=== PATIENT | male | born 1955 | race Caucasian/White ===

== ENCOUNTER → 2016-05-08 | Outpatient (CLI) | payer OTHER ==
[~2016-05-08] MED LIST: LEVO100T81 PO; SIMV-13 PO
[2016-05-08 13:25] LABS: Basophils # (auto) 0 uL; Basophils % (auto) 0.4 % (0.0-2.0); Eosinophils # (auto) 0.1 uL; Eosinophils % (auto) 1.1 % (0.0-7.0); Hematocrit 44.8 % (41.0-53.0); Hemoglobin 14.9 g/dL (13.5-17.5); Lymphocytes # (auto) 2.1 uL; Lymphocytes % (auto) 18.9 % (10.0-50.0); Mean Corpuscular Hemoglobin 27.7 pg (28.0-32.0); Mean Corpuscular Hgb Conc. 33.2 g/dL (32.0-36.0); Mean Corpuscular Volume 83.4 fL (80.0-100.0); Mean Platelet Volume 8.2 fL (7.4-10.4); Monocytes # (auto) 0.6 uL; Monocytes % (auto) 5.6 % (0.0-12.0); Neutrophils # (auto) 8.1 uL; Platelet Count (auto) 283 10^3/uL (140-450); Red Cell Distribution Width 13.8 % (11.6-16.0); White Blood Cell 10.9 10^3/uL (4.4-10.8)
[2016-05-08 13:38] LABS: Albumin 3.8 g/dL (3.4-5.0); Bilirubin, Total 0.9 mg/dL (0.2-1.0); Calcium 9.9 mg/dL (8.5-10.1); Total Protein 8.5 g/dL (6.4-8.2)
[2016-05-08 13:42] LABS: Urine Bilirubin Negative (Negative); Urine Color Yellow (Yellow); Urine Glucose Normal (Normal); Urine Ketone Negative (Negative); Urine Mucus FEW (None Seen); Urine Nitrite Negative (Negative); Urine RBC 32 /hpf (0 - 3); Urine Urobilinogen Normal (Negative); Urine pH 5.5 (5.0-8.0)
[2016-05-08 13:51] LABS: Urine Blood 2+ /uL (Negative)
== END | disposition home or self-care (01) ==
LOC: LAB 12:31
PROVIDERS: ATTEND Family Medicine
DX: E11.9 Type 2 diabetes mellitus without complications (principal); E03.9 Hypothyroidism, unspecified; Z00.00 Encounter for general adult medical examination without abnormal findings
CPT/HCPCS: 36415; 80053; 80061; 81001; 82043; 82270; 82607; 83036; 84443; 85025

== ENCOUNTER → 2016-12-16 | Outpatient (CLI) | payer OTHER ==
[2016-12-16 10:31] LABS: Basophils # (auto) 0.1 uL; Basophils % (auto) 0.7 % (0.0-2.0); Eosinophils # (auto) 0.1 uL; Eosinophils % (auto) 1.2 % (0.0-7.0); Hematocrit 43.6 % (41.0-53.0); Hemoglobin 14.7 g/dL (13.5-17.5); Lymphocytes % (auto) 23.7 % (10.0-50.0); Mean Corpuscular Hemoglobin 28.6 pg (28.0-32.0); Mean Corpuscular Hgb Conc. 33.7 g/dL (32.0-36.0); Mean Corpuscular Volume 84.8 fL (80.0-100.0); Mean Platelet Volume 7.1 fL (6.9-10.8); Monocytes # (auto) 0.5 uL; Neutrophils # (auto) 5.8 uL; Neutrophils % (auto) 68.4 % (37.0-80.0); Nucleated Red Blood Cells % 0.1 %; Platelet Count (auto) 201 10^3/uL (140-450); Red Cell Distribution Width 13.9 % (11.8-14.3); White Blood Cell 8.5 10^3/uL (4.4-10.8)
[2016-12-16 11:02] LABS: Albumin 3.9 g/dL (3.4-5.0); BUN/Creatinine Ratio 11.1; Bilirubin, Total 1.1 mg/dL (0.2-1.0); Potassium 3.8 mmol/L (3.5-5.1); Total Protein 8.2 g/dL (6.4-8.2)
[2016-12-16 15:33] LABS: Urine Bilirubin Negative (Negative); Urine Blood Negative /uL (Negative); Urine Color Yellow (Yellow); Urine Glucose Normal (Normal); Urine Hyaline Cast FEW /lpf (0 - 2); Urine Ketone Negative (Negative); Urine Mucus FEW (None Seen); Urine Nitrite Negative (Negative); Urine RBC <1 /hpf (0 - 3); Urine Squamous Epithelial Cell FEW /hpf (<5); Urine Urobilinogen Normal (Negative)
== END | disposition home or self-care (01) ==
LOC: LAB 10:09
PROVIDERS: ATTEND Family Medicine
DX: I10 Essential (primary) hypertension (principal); E11.22 Type 2 diabetes mellitus with diabetic chronic kidney disease; E03.9 Hypothyroidism, unspecified
CPT/HCPCS: 36415; 80053; 80061; 81001; 82607; 83036; 84153; 84443; 85025

== ENCOUNTER → 2018-01-06 | Outpatient (CLI) | payer OTHER ==
[2018-01-06 14:03] LABS: Basophils # (auto) 0 uL; Basophils % (auto) 0.3 % (0.0-2.0); Eosinophils # (auto) 0.2 uL; Hematocrit 43.7 % (41.0-53.0); Hemoglobin 14.5 g/dL (13.5-17.5); Lymphocytes # (auto) 2.3 uL; Lymphocytes % (auto) 29.4 % (10.0-50.0); Mean Corpuscular Hemoglobin 28.1 pg (28.0-32.0); Mean Corpuscular Hgb Conc. 33.2 g/dL (32.0-36.0); Mean Corpuscular Volume 84.8 fL (80.0-100.0); Monocytes # (auto) 0.6 uL; Monocytes % (auto) 8.1 % (0.0-12.0); Neutrophils # (auto) 4.7 uL; Neutrophils % (auto) 60.2 % (37.0-80.0); Platelet Count (auto) 207 10^3/uL (140-450); Red Blood Cells 5.16 10^6/uL (4.5-5.90); Red Cell Distribution Width 14.1 % (11.8-14.3); White Blood Cell 7.8 10^3/uL (4.4-10.8)
[2018-01-06 14:05] LABS: Urine Bacteria NONE SEEN /hpf (None Seen); Urine Blood Negative /uL (Negative); Urine Mucus FEW (None Seen); Urine Specific Gravity 1.012 (1.001-1.035); Urine WBC 1 /hpf (0 - 3)
[2018-01-06 14:22] LABS: Albumin 3.9 g/dL (3.4-5.0); BUN/Creatinine Ratio 12.8; Calcium 9.7 mg/dL (8.5-10.1)
[2018-01-06 14:26] LABS: Bilirubin, Total 1.2 mg/dL (0.2-1.0); Total Protein 8.3 g/dL (6.4-8.2)
[2018-01-06 14:46] LABS: Prostate Specific Antigen 0.35 ng/mL (0.0-4.0)
== END | disposition home or self-care (01) ==
LOC: LAB 13:41
PROVIDERS: ATTEND Family Medicine
DX: E11.22 Type 2 diabetes mellitus with diabetic chronic kidney disease (principal); E11.69 Type 2 diabetes mellitus with other specified complication; N18.3 Chronic kidney disease, stage 3 (moderate); E66.09 Other obesity due to excess calories
CPT/HCPCS: 36415; 80053; 80061; 81001; 82043; 82607; 83036; 84153; 84443; 85025

== ENCOUNTER → 2018-01-14 | Outpatient (CLI) | payer OTHER | END | disposition home or self-care (01) | LOC: LAB 10:26 | PROVIDERS: ATTEND Family Medicine | DX: E11.22 Type 2 diabetes mellitus with diabetic chronic kidney disease (principal); E11.69 Type 2 diabetes mellitus with other specified complication; I12.9 Hypertensive chronic kidney disease with stage 1 through stage 4 chronic kidney disease, or unspecified chronic kidney disease; N18.3 Chronic kidney disease, stage 3 (moderate); E66.09 Other obesity due to excess calories | CPT/HCPCS: 82270 ==

== ENCOUNTER → 2019-03-04 | Outpatient (CLI) | payer OTHER ==
[2019-03-04 12:12] LABS: Urine WBC None Seen /hpf (0 - 3)
[2019-03-04 12:30] LABS: Basophils # (auto) 0.1 uL; Basophils % (auto) 0.6 % (0.0-2.0); Eosinophils # (auto) 0.1 uL; Hematocrit 43.7 % (41.0-53.0); Hemoglobin 14.7 g/dL (13.5-17.5); Lymphocytes # (auto) 1.9 uL; Lymphocytes % (auto) 21.5 % (10.0-50.0); Mean Corpuscular Hemoglobin 28.7 pg (28.0-32.0); Mean Corpuscular Hgb Conc. 33.7 g/dL (32.0-36.0); Mean Corpuscular Volume 85.2 fL (80.0-100.0); Monocytes # (auto) 0.7 uL; Monocytes % (auto) 7.6 % (0.0-12.0); Neutrophils # (auto) 6.1 uL; Neutrophils % (auto) 69.3 % (37.0-80.0); Platelet Count (auto) 204 10^3/uL (140-450); Red Blood Cells 5.13 10^6/uL (4.5-5.90); Red Cell Distribution Width 13.8 % (11.8-14.3); White Blood Cell 8.8 10^3/uL (4.4-10.8)
[2019-03-04 12:31] LABS: Urine Bacteria NONE SEEN /hpf (None Seen); Urine Blood Negative /uL (Negative); Urine Specific Gravity 1.007 (1.001-1.035)
[2019-03-04 13:05] LABS: Albumin 3.9 g/dL (3.4-5.0); Calcium 9.8 mg/dL (8.5-10.1); Potassium 4.3 mmol/L (3.5-5.1)
[2019-03-04 13:09] LABS: BUN/Creatinine Ratio 13.7; Total Protein 8.2 g/dL (6.4-8.2)
== END | disposition home or self-care (01) ==
LOC: LAB 12:07
PROVIDERS: ATTEND Family Medicine
DX: E11.9 Type 2 diabetes mellitus without complications (principal); E78.49 Other hyperlipidemia; E03.9 Hypothyroidism, unspecified; I10 Essential (primary) hypertension; E66.09 Other obesity due to excess calories
CPT/HCPCS: 36415; 80053; 80061; 81001; 82043; 82607; 83036; 84443; 85025

== ENCOUNTER → 2020-03-29 | Outpatient (CLI) | payer OTHER ==
[2020-03-29 13:10] LABS: Basophils # (auto) 0.1 10 ^3/uL (0-0.2); Basophils % (auto) 0.8 % (0.0-2.0); Eosinophils # (auto) 0.2 10 ^3/uL (0-0.8); Eosinophils % (auto) 1.8 % (0.0-7.0); Hematocrit 42.9 % (41.0-53.0); Hemoglobin 14.4 g/dL (13.5-17.5); Lymphocytes % (auto) 21.4 % (10.0-50.0); Mean Corpuscular Hgb Conc. 33.6 g/dL (32.0-36.0); Mean Corpuscular Volume 83.3 fL (80.0-100.0); Monocytes # (auto) 0.4 10 ^3/uL (0-1.3); Monocytes % (auto) 4.7 % (0.0-12.0); Neutrophils # (auto) 6.5 10 ^3/uL (1.6-8.6); Neutrophils % (auto) 71.3 % (37.0-80.0); Platelet Count (auto) 262 10^3/uL (140-450); Red Blood Cells 5.15 10^6/uL (4.5-5.90); Red Cell Distribution Width 13.8 % (11.8-14.3); White Blood Cell 9.1 10^3/uL (4.4-10.8)
[2020-03-29 13:18] LABS: Urine Bacteria NONE SEEN /hpf (None Seen); Urine Blood Negative /uL (Negative); Urine Hyaline Cast MANY /lpf (0 - 2); Urine Mucus FEW (None Seen); Urine Specific Gravity 1.018 (1.001-1.035); Urine WBC 5 /hpf (0 - 3)
[2020-03-29 13:56] LABS: Albumin 3.6 g/dL (3.4-5.0); Calcium 9.6 mg/dL (8.5-10.1); Potassium 4.7 mmol/L (3.5-5.1)
[2020-03-29 14:01] LABS: BUN/Creatinine Ratio 13.5; Bilirubin, Total 0.9 mg/dL (0.2-1.0); Prostate Specific Antigen 1.38 ng/mL (0.0-4.0); Total Protein 8.4 g/dL (6.4-8.2)
== END | disposition home or self-care (01) ==
LOC: LAB 12:51
PROVIDERS: ATTEND Family Medicine
DX: Z12.5 Encounter for screening for malignant neoplasm of prostate (principal); E11.22 Type 2 diabetes mellitus with diabetic chronic kidney disease; I12.9 Hypertensive chronic kidney disease with stage 1 through stage 4 chronic kidney disease, or unspecified chronic kidney disease; N18.30 Chronic kidney disease, stage 3 unspecified; E66.09 Other obesity due to excess calories; I26.99 Other pulmonary embolism without acute cor pulmonale
CPT/HCPCS: 36415; 80053; 80061; 81001; 82043; 82607; 83036; 84153; 84443; 85025

== ENCOUNTER → 2021-04-15 | Outpatient (CLI) | payer OTHER ==
[2021-04-15 09:40] LABS: Basophils # (auto) 0 10 ^3/uL (0-0.2); Basophils % (auto) 0.4 % (0.0-2.0); Eosinophils # (auto) 0.1 10 ^3/uL (0-0.8); Eosinophils % (auto) 1.5 % (0.0-7.0); Hematocrit 42.3 % (41.0-53.0); Hemoglobin 14.1 g/dL (13.5-17.5); Lymphocytes # (auto) 1.8 10 ^3/uL (0.4-5.4); Lymphocytes % (auto) 18.7 % (10.0-50.0); Mean Corpuscular Hemoglobin 27.8 pg (28.0-32.0); Mean Corpuscular Hgb Conc. 33.4 g/dL (32.0-36.0); Mean Corpuscular Volume 83.3 fL (80.0-100.0); Monocytes # (auto) 0.5 10 ^3/uL (0-1.3); Monocytes % (auto) 5.6 % (0.0-12.0); Neutrophils % (auto) 73.8 % (37.0-80.0); Nucleated Red Blood Cells % 0.1 %; Red Blood Cells 5.07 10^6/uL (4.5-5.90); Red Cell Distribution Width 14.4 % (11.8-14.3); White Blood Cell 9.6 10^3/uL (4.4-10.8)
[2021-04-15 10:23] LABS: Prostate Specific Antigen 0.24 ng/mL (0.0-4.0)
[2021-04-15 10:24] LABS: Potassium 4.5 mmol/L (3.5-5.1)
[2021-04-15 10:37] LABS: Albumin 3.4 g/dL (3.4-5.0); BUN/Creatinine Ratio 16.3; Calcium 9.7 mg/dL (8.5-10.1); Total Protein 7.3 g/dL (6.4-8.2)
[2021-04-16 08:59] LABS: Urine Bacteria NONE SEEN /hpf (None Seen); Urine Blood Negative /uL (Negative); Urine Specific Gravity 1.011 (1.001-1.035); Urine WBC 1 /hpf (0 - 3)
== END | disposition home or self-care (01) ==
LOC: LAB 08:50
PROVIDERS: ATTEND Family Medicine
DX: E11.42 Type 2 diabetes mellitus with diabetic polyneuropathy (principal); E66.01 Morbid (severe) obesity due to excess calories; I10 Essential (primary) hypertension; E78.49 Other hyperlipidemia
CPT/HCPCS: 36415; 80053; 80061; 81001; 82043; 82607; 83036; 84153; 84443; 85025

== ENCOUNTER → 2021-05-20 | Outpatient (CLI) | payer OTHER ==
[2021-05-20 07:46] LABS: Albumin 3.5 g/dL (3.4-5.0); Basophils # (auto) 0.2 10 ^3/uL (0-0.2); Basophils % (auto) 1.5 % (0.0-2.0); Eosinophils # (auto) 0.3 10 ^3/uL (0-0.8); Eosinophils % (auto) 2.5 % (0.0-7.0); Hemoglobin 14.5 g/dL (13.5-17.5); Lymphocytes % (auto) 18.5 % (10.0-50.0); Mean Corpuscular Hgb Conc. 33.7 g/dL (32.0-36.0); Monocytes # (auto) 0.5 10 ^3/uL (0-1.3); Neutrophils # (auto) 7.8 10 ^3/uL (1.6-8.6); Neutrophils % (auto) 72.5 % (37.0-80.0); Potassium 4.7 mmol/L (3.5-5.1); Red Blood Cells 5.18 10^6/uL (4.5-5.90); Red Cell Distribution Width 14.1 % (11.8-14.3); White Blood Cell 10.8 10^3/uL (4.4-10.8)
[2021-05-20 07:53] LABS: BUN/Creatinine Ratio 15.3; Bilirubin, Total 0.7 mg/dL (0.2-1.0); Calcium 10.3 mg/dL (8.5-10.1); Total Protein 7.7 g/dL (6.4-8.2)
== END | disposition home or self-care (01) ==
LOC: LAB 07:06
PROVIDERS: ATTEND Student in an Organized Health Care Education/Training Program
DX: I12.9 Hypertensive chronic kidney disease with stage 1 through stage 4 chronic kidney disease, or unspecified chronic kidney disease (principal); E11.22 Type 2 diabetes mellitus with diabetic chronic kidney disease; E11.319 Type 2 diabetes mellitus with unspecified diabetic retinopathy without macular edema; N18.9 Chronic kidney disease, unspecified; E66.01 Morbid (severe) obesity due to excess calories; E78.49 Other hyperlipidemia
CPT/HCPCS: 36415; 80053; 85025

== ENCOUNTER → 2021-05-28 | Outpatient (CLI) | payer OTHER | END | disposition home or self-care (01) | LOC: LAB 10:43 | PROVIDERS: ATTEND Student in an Organized Health Care Education/Training Program | DX: I12.9 Hypertensive chronic kidney disease with stage 1 through stage 4 chronic kidney disease, or unspecified chronic kidney disease (principal); E11.319 Type 2 diabetes mellitus with unspecified diabetic retinopathy without macular edema; E11.22 Type 2 diabetes mellitus with diabetic chronic kidney disease; N18.9 Chronic kidney disease, unspecified; E78.49 Other hyperlipidemia; E66.01 Morbid (severe) obesity due to excess calories | CPT/HCPCS: 82274 ==

== ENCOUNTER → 2021-08-08 | Outpatient (CLI) | payer OTHER | END | disposition home or self-care (01) | LOC: LAB 10:50 | PROVIDERS: ATTEND Student in an Organized Health Care Education/Training Program | DX: Z12.11 Encounter for screening for malignant neoplasm of colon (principal) | CPT/HCPCS: 82270 ==

== ENCOUNTER → 2021-08-19 | Outpatient (CLI) | payer OTHER ==
[2021-08-19 08:30] LABS: Cholesterol 150 mg/dL (< 200); HDL Cholesterol 51 mg/dL (40-59); LDL Cholesterol 87 mg/dL (< 100); Triglycerides 144 mg/dL (< 150)
== END | disposition home or self-care (01) ==
LOC: LAB 07:26
PROVIDERS: ATTEND Student in an Organized Health Care Education/Training Program
DX: E11.319 Type 2 diabetes mellitus with unspecified diabetic retinopathy without macular edema (principal); E78.49 Other hyperlipidemia
CPT/HCPCS: 36415; 80061; 83036

== ENCOUNTER → 2022-04-01 | Outpatient (CLI) | payer OTHER | END | disposition home or self-care (01) | LOC: XYW 08:29 | PROVIDERS: ATTEND Internal Medicine | DX: I35.0 Nonrheumatic aortic (valve) stenosis (principal) | CPT/HCPCS: 93306 ==

== ENCOUNTER → 2022-04-07 | Outpatient (CLI) | payer OTHER ==
[2022-04-07 10:23] LABS: Albumin 3.6 g/dL (3.4-5.0); Calcium 9.5 mg/dL (8.5-10.1); Potassium 4.5 mmol/L (3.5-5.1)
[2022-04-07 10:30] LABS: BUN/Creatinine Ratio 15.3; Total Protein 7.6 g/dL (6.4-8.2)
== END | disposition home or self-care (01) ==
LOC: LAB 09:42
PROVIDERS: ATTEND Internal Medicine
DX: I10 Essential (primary) hypertension (principal)
CPT/HCPCS: 36415; 80053

== ENCOUNTER → 2022-05-14 | Outpatient (CLI) | payer OTHER ==
[2022-05-14 13:06] LABS: Basophils # (auto) 0.1 10 ^3/uL (0-0.2); Eosinophils # (auto) 0.3 10 ^3/uL (0-0.8); Lymphocytes # (auto) 2.2 10 ^3/uL (0.4-5.4); Mean Corpuscular Volume 79.7 fL (80.0-100.0); Monocytes # (auto) 0.6 10 ^3/uL (0-1.3); Nucleated Red Blood Cells % 0.1 %
[2022-05-14 13:08] LABS: Basophils % (auto) 1.1 % (0.0-2.0); Eosinophils % (auto) 2.7 % (0.0-7.0); Hematocrit 40.6 % (41.0-53.0); Hemoglobin 13.4 g/dL (13.5-17.5); Lymphocytes % (auto) 21.9 % (10.0-50.0); Mean Corpuscular Hemoglobin 26.3 pg (28.0-32.0); Monocytes % (auto) 6.1 % (0.0-12.0); Neutrophils # (auto) 6.9 10 ^3/uL (1.6-8.6); Neutrophils % (auto) 68.2 % (37.0-80.0); Red Cell Distribution Width 14.8 % (11.8-14.3); White Blood Cell 10.2 10^3/uL (4.4-10.8)
[2022-05-14 14:12] LABS: Albumin 3.5 g/dL (3.4-5.0); Calcium 9.6 mg/dL (8.5-10.1); Potassium 4.9 mmol/L (3.5-5.1)
[2022-05-14 14:14] LABS: Protein, Urine 48.9 mg/dL (0.0-11.9)
[2022-05-14 14:16] LABS: BUN/Creatinine Ratio 12.3; Bilirubin, Total 0.7 mg/dL (0.2-1.0); Total Protein 7.8 g/dL (6.4-8.2)
[2022-05-14 14:25] LABS: Micro Albumin 74.4 mg/L (0-30.0)
== END | disposition home or self-care (01) ==
LOC: LAB 12:37
PROVIDERS: ATTEND Student in an Organized Health Care Education/Training Program
DX: Z12.11 Encounter for screening for malignant neoplasm of colon (principal); E11.65 Type 2 diabetes mellitus with hyperglycemia; E66.01 Morbid (severe) obesity due to excess calories
CPT/HCPCS: 36415; 80053; 80061; 82043; 82274; 82570; 83036; 84156; 85025

== ENCOUNTER → 2023-04-15 | Outpatient (CLI) | payer OTHER ==
[~2023-04-15] MED LIST changes: -SIMV-13 PO; +SIMV40TA18 PO
[2023-04-15 12:46] LABS: Basophils # (auto) 0.1 10 ^3/uL (0-0.2); Eosinophils # (auto) 0.3 10 ^3/uL (0-0.8); Hematocrit 41.6 % (41.0-53.0); Lymphocytes # (auto) 2.1 10 ^3/uL (0.4-5.4); White Blood Cell 7.7 10^3/uL (4.4-10.8)
[2023-04-15 12:48] LABS: Basophils % (auto) 1.5 % (0.0-2.0); Eosinophils % (auto) 4.2 % (0.0-7.0); Hemoglobin 13.5 g/dL (13.5-17.5); Lymphocytes % (auto) 27.6 % (10.0-50.0); Mean Corpuscular Hgb Conc. 32.4 g/dL (32.0-36.0); Mean Corpuscular Volume 83.1 fL (80.0-100.0); Monocytes # (auto) 0.6 10 ^3/uL (0-1.3); Monocytes % (auto) 7.2 % (0.0-12.0); Neutrophils # (auto) 4.6 10 ^3/uL (1.6-8.6); Neutrophils % (auto) 59.5 % (37.0-80.0); Nucleated Red Blood Cells % 0.1 %; Red Cell Distribution Width 14.6 % (11.8-14.3)
[2023-04-15 13:12] LABS: Urine Bacteria NONE SEEN /hpf (None Seen); Urine Blood 2+ /uL (Negative); Urine Clarity Clear (Clear); Urine Color Yellow (Yellow); Urine Hyaline Cast FEW /lpf (0 - 2); Urine Protein, UAD TRACE (Negative); Urine Specific Gravity 1.019 (1.001-1.035); Urine Urobilinogen Normal (Negative); Urine WBC 1 /hpf (0 - 3)
[2023-04-15 13:20] LABS: Creatinine, Urine 111.4 mg/dL (30.0-125.0)
[2023-04-15 13:22] LABS: Alanine Aminotransferase 37 U/L (7-40); Albumin 4.3 g/dL (3.2-4.8); Alkaline Phosphatase 82 U/L (46-116); Anion Gap 6 (5-15); Aspartate Aminotransferase 31 U/L (13-40); BUN/Creatinine Ratio 12.4 (10.0-20.0); Blood Urea Nitrogen 17 mg/dL (9-23); Calcium 10.1 mg/dL (8.5-10.1); Carbon Dioxide 27 mmol/L (20-30); Chloride 107 mmol/L (98-107); Glucose 178 mg/dL (74-106); LDL Cholesterol 94 mg/dL (< 100); Potassium 5.4 mmol/L (3.5-5.1); Sodium 140 mmol/L (136-145); Triglycerides 158 mg/dL (< 150)
[2023-04-15 13:23] LABS: Cholesterol 160 mg/dL (< 200); HDL Cholesterol 38 mg/dL (40-59); Total Protein 7.3 g/dL (5.7-8.2)
== END | disposition home or self-care (01) ==
LOC: LAB 12:26
PROVIDERS: ATTEND Student in an Organized Health Care Education/Training Program
DX: I12.9 Hypertensive chronic kidney disease with stage 1 through stage 4 chronic kidney disease, or unspecified chronic kidney disease (principal); E11.22 Type 2 diabetes mellitus with diabetic chronic kidney disease; N18.31 Chronic kidney disease, stage 3a; E11.65 Type 2 diabetes mellitus with hyperglycemia; R31.9 Hematuria, unspecified; E66.01 Morbid (severe) obesity due to excess calories; Z87.442 Personal history of urinary calculi
CPT/HCPCS: 36415; 80053; 80061; 81001; 82043; 82570; 83036; 85025

== ENCOUNTER → 2023-04-27 | Outpatient (CLI) | payer OTHER | END | disposition home or self-care (01) | LOC: XYW 13:08 | PROVIDERS: ATTEND Student in an Organized Health Care Education/Training Program | DX: I50.32 Chronic diastolic (congestive) heart failure (principal) | CPT/HCPCS: 93306 ==

== ENCOUNTER → 2023-05-05 | Outpatient (CLI) | payer OTHER | END | disposition home or self-care (01) | LOC: LAB 12:45 | PROVIDERS: ATTEND Student in an Organized Health Care Education/Training Program | DX: I12.9 Hypertensive chronic kidney disease with stage 1 through stage 4 chronic kidney disease, or unspecified chronic kidney disease (principal); E11.22 Type 2 diabetes mellitus with diabetic chronic kidney disease; E11.65 Type 2 diabetes mellitus with hyperglycemia; N18.30 Chronic kidney disease, stage 3 unspecified; R31.9 Hematuria, unspecified; E66.9 Obesity, unspecified; Z87.442 Personal history of urinary calculi | CPT/HCPCS: 82274 ==

== ENCOUNTER 2023-12-07 17:41 | Inpatient (IN) | payer OTHER ==
[~2023-12-07] VITALS: Ht 157.5 cm; Wt 154.9 kg
[~2023-12-07 17:41] MED LIST changes: +ASPI325T6 PO; +DIGO0.12 PO; +GLIP5TAB21 PO; +INSUINJ37 SC; +LEVO175T4 PO; +LISI-275 PO; +LISI2.5T47 PO; +METF-370 PO; +METO25TA5 PO; +ROSU40TA81 PO; -SIMV40TA18 PO; +WARF4TAB70 PO
[2023-12-07 18:20] VITALS: PULSE 124; RESP 25; O2SAT 94
[2023-12-07] MEDS: SODIUM CHLORIDE 0.9% 500 ML IV ONE (18:30)
[2023-12-07] MEDS: SODIUM CHLORIDE 0.9% 1,000 ML IV ONE (18:42)
[2023-12-07] MEDS ORDERED: SODIUM CHLORIDE 0.9% 1,000 ML IV ONE (18:45)
[2023-12-07 19:08] LABS: Basophils # (auto) 0.1 10 ^3/uL (0-0.2); Basophils % (auto) 0.4 % (0.0-2.0); Eosinophils # (auto) 0 10 ^3/uL (0-0.8); Eosinophils % (auto) 0.1 % (0.0-7.0); Hematocrit 29.5 % (41.0-53.0); Lymphocytes # (auto) 0.9 10 ^3/uL (0.4-5.4); Mean Corpuscular Hemoglobin 26.9 pg (28.0-32.0); Mean Corpuscular Hgb Conc. 33.7 g/dL (32.0-36.0); Monocytes # (auto) 1.5 10 ^3/uL (0-1.3); Monocytes % (auto) 6.7 % (0.0-12.0); Neutrophils # (auto) 19.3 10 ^3/uL (1.6-8.6); Neutrophils % (auto) 88.8 % (37.0-80.0); Platelet Count (auto) 193 10^3/uL (140-450); Red Blood Cells 3.69 10^6/uL (4.5-5.90); Red Cell Distribution Width 14.4 % (11.8-14.3); White Blood Cell 21.8 10^3/uL (4.4-10.8)
[2023-12-07 19:26] LABS: Alanine Aminotransferase 25 U/L (7-40); Albumin 3.9 g/dL (3.2-4.8); Alkaline Phosphatase 66 U/L (46-116); Anion Gap 7 (5-15); Aspartate Aminotransferase 48 U/L (13-40); BUN/Creatinine Ratio 7.6 (10.0-20.0); Bilirubin, Total 1.2 mg/dL (0.2-1.0); Blood Urea Nitrogen 32 mg/dL (9-23); Calcium 8.9 mg/dL (8.7-10.4); Carbon Dioxide 23 mmol/L (20-30); Chloride 103 mmol/L (98-107); Glucose 254 mg/dL (74-106); Potassium 3.7 mmol/L (3.5-5.1); Sodium 133 mmol/L (136-145); Total Protein 6.8 g/dL (5.7-8.2)
[2023-12-07] MEDS: levoFLOXacin 500MG 100 ML IV ONE (20:42)
[2023-12-08 02:08] LABS: Urine Bacteria None Seen /hpf (None Seen)
[2023-12-08] MEDS ORDERED: VANCOMYCIN PER PHARMACY 0 MG IV SCH (02:30)
[2023-12-08] MEDS ORDERED: DOCUSATE SOD 100 MG CAP PO PRN (02:30)
[2023-12-08] MEDS ORDERED: DEXTROSE (50%) 50ML SYRG IV PRN (02:30)
[2023-12-08 02:32] LABS: Urine Amorphous Crystal FEW /hpf (None Seen); Urine Blood 3+ /uL (Negative); Urine Clarity Ex.Turbid (Clear); Urine Color Light-Orange (Yellow); Urine Mucus FEW (None Seen); Urine Protein, UAD 2+ (Negative); Urine Specific Gravity 1.011 (1.001-1.035); Urine Urobilinogen Normal (Negative); Urine WBC 644 /hpf (0 - 3); Urine WBC Clumps PRESENT /hpf (None Seen)
[2023-12-08] MEDS ORDERED: ACETAMINOPHEN 500 MG TAB PO PRN (02:45)
[2023-12-08 03:01] LABS: Amphetamine Screen, Urine Neg (NEGATIVE); Barbiturate Scree,Urine Neg (NEGATIVE); Benzodiazephine Screen, Urine Neg (NEGATIVE); Cocaine Screen, Urine Neg (NEGATIVE)
[2023-12-08 03:02] LABS: Cannabinoid Screen, Urine Neg (NEGATIVE); Opiate Scree,Urine Neg (NEGATIVE); Phencyclidine Screen, Urine Neg (NEGATIVE)
[2023-12-08 03:35] LABS: INR 1.89 (0.9-1.15); Partial Thromboplastin Time 42.2 SEC (24.5-34.5); Prothrombin Time 19.1 sec (9.3-11.8)
[2023-12-08] MEDS: VANCOMYCIN 1GM/200ML 200 ML IV ONE (03:46)
[2023-12-08] MEDS: ACCU-CHEK COMFORT CURVE STRIP VI SCH (04:00)
[2023-12-08] MEDS: InsuLIN REG 1unit/0.01ml Soln (100units/ml) SC SCH (04:00)
[2023-12-08 04:56] VITALS: BP 103/51; PULSE 106; O2SAT 98
[2023-12-08 04:59] VITALS: BP 103/51; PULSE 106; RESP 24; TEMP 99.9; O2SAT 98
[2023-12-08 06:38] LABS: Basophils # (auto) 0.1 10 ^3/uL (0-0.2); Basophils % (auto) 0.3 % (0.0-2.0); Eosinophils # (auto) 0 10 ^3/uL (0-0.8); Hematocrit 28.6 % (41.0-53.0); Hemoglobin 9.8 g/dL (13.5-17.5); Lymphocytes # (auto) 0.8 10 ^3/uL (0.4-5.4); Lymphocytes % (auto) 3.9 % (10.0-50.0); Mean Corpuscular Hemoglobin 27.6 pg (28.0-32.0); Mean Corpuscular Hgb Conc. 34.3 g/dL (32.0-36.0); Mean Corpuscular Volume 80.3 fL (80.0-100.0); Monocytes # (auto) 1.1 10 ^3/uL (0-1.3); Monocytes % (auto) 5.5 % (0.0-12.0); Neutrophils # (auto) 18.1 10 ^3/uL (1.6-8.6); Neutrophils % (auto) 90.3 % (37.0-80.0); Platelet Count (auto) 188 10^3/uL (140-450); Red Blood Cells 3.56 10^6/uL (4.5-5.90); Red Cell Distribution Width 14.9 % (11.8-14.3)
[2023-12-08 06:47] LABS: Alanine Aminotransferase 24 U/L (7-40); Albumin 3.7 g/dL (3.2-4.8); Alkaline Phosphatase 68 U/L (46-116); Anion Gap 11 (5-15); Aspartate Aminotransferase 48 U/L (13-40); BUN/Creatinine Ratio 8.4 (10.0-20.0); Bilirubin, Total 1.1 mg/dL (0.2-1.0); Blood Urea Nitrogen 39 mg/dL (9-23); Calcium 8.7 mg/dL (8.7-10.4); Carbon Dioxide 23 mmol/L (20-30); Chloride 101 mmol/L (98-107); Glucose 260 mg/dL (74-106); Sodium 135 mmol/L (136-145); Total Protein 6.5 g/dL (5.7-8.2)
[2023-12-08] MEDS: INSULIN LANTUS (GLARGINE) 1 /0.01ml (100units/ml) SC SCH (08:02)
[2023-12-08 08:34] VITALS: PULSE 116; RESP 20; O2SAT 95
[2023-12-08 09:06] LABS: COVID19 ANTIGEN SOFIA FIA NEGATIVE (NEGATIVE)
[2023-12-08] MEDS ORDERED: CEFEPIME HCL-DEXTROSE 50 ML IV SCH (10:00)
[2023-12-08] MEDS ORDERED: ENOXAPARIN SOD 150 MG/1 ML SYRINGE SC SCH (10:00)
[2023-12-08] MEDS: CEFEPIME 1GM/ 50ML 50 ML IV SCH (10:25)
[2023-12-08] MEDS: SODIUM CHLORIDE 0.9% 1,000 ML IV SCH (13:06)
[2023-12-08] MEDS: WARFARIN SODIUM 5 MG TAB PO ONE (18:43)
[2023-12-08 19:20] VITALS: PULSE 102; RESP 16; O2SAT 90
[2023-12-08] MEDS ORDERED: TAMS0.4C39 PO (23:56)
[2023-12-09] VITALS (10 sets, daily range): BP systolic 121–141; BP diastolic 69–95; PULSE 78–117; RESP 18–25; TEMP 97.6–98.4; O2SAT 90–98
[2023-12-09] MEDS: INSULIN LANTUS (GLARGINE) 1 /0.01ml (100units/ml) SC SCH (06:45)
[2023-12-09] MEDS ORDERED: VANCOMYCIN PER PHARMACY 0 MG IV SCH (07:00)
[2023-12-09 07:51] LABS: Basophils # (auto) 0.1 10 ^3/uL (0-0.2); Basophils % (auto) 0.5 % (0.0-2.0); Eosinophils # (auto) 0.1 10 ^3/uL (0-0.8); Hemoglobin 10.6 g/dL (13.5-17.5); Red Cell Distribution Width 14.8 % (11.8-14.3)
[2023-12-09 07:54] LABS: Eosinophils % (auto) 0.4 % (0.0-7.0); Hematocrit 31.5 % (41.0-53.0); Lymphocytes % (auto) 5.3 % (10.0-50.0); Mean Corpuscular Hgb Conc. 33.7 g/dL (32.0-36.0); Mean Corpuscular Volume 80.1 fL (80.0-100.0); Monocytes % (auto) 5.2 % (0.0-12.0); Neutrophils # (auto) 16.5 10 ^3/uL (1.6-8.6); Neutrophils % (auto) 88.6 % (37.0-80.0); Platelet Count (auto) 253 10^3/uL (140-450); Red Blood Cells 3.94 10^6/uL (4.5-5.90); White Blood Cell 18.7 10^3/uL (4.4-10.8)
[2023-12-09 08:28] LABS: Chloride 105 mmol/L (98-107); Potassium 4.2 mmol/L (3.5-5.1); Sodium 138 mmol/L (136-145)
[2023-12-09 08:29] LABS: Anion Gap 13 (5-15); Calcium 9.2 mg/dL (8.7-10.4); Carbon Dioxide 20 mmol/L (20-30)
[2023-12-09 08:33] LABS: Glucose 209 mg/dL (74-106)
[2023-12-09 08:34] LABS: BUN/Creatinine Ratio 9.6 (10.0-20.0); Blood Urea Nitrogen 47 mg/dL (9-23)
[2023-12-09] MEDS: VANCOMYCIN 1GM/200ML 200 ML IV ONE ×2 (08:36→16:19)
[2023-12-09 08:53] LABS: INR 2.28 (0.9-1.15); Partial Thromboplastin Time 47.8 SEC (24.5-34.5); Prothrombin Time 22.7 sec (9.3-11.8)
[2023-12-09] MEDS: SODIUM CHLORIDE 0.9% 500 ML IV ONE (11:49)
[2023-12-09] MEDS: WARFARIN SODIUM 2 MG TAB PO ONE (17:21)
[2023-12-10] VITALS (15 sets, daily range): BP systolic 121–144; BP diastolic 68–78; PULSE 78–103; RESP 16–20; TEMP 97.7–98.6; O2SAT 92–98
[2023-12-10 00:14] LABS: Creatinine, Urine 61.36 mg/dL (30.0-125.0)
[2023-12-10 07:14] LABS: Basophils # (auto) 0.1 10 ^3/uL (0-0.2); Basophils % (auto) 0.5 % (0.0-2.0); Eosinophils # (auto) 0.2 10 ^3/uL (0-0.8); Eosinophils % (auto) 1.8 % (0.0-7.0); Hemoglobin 10.1 g/dL (13.5-17.5); Lymphocytes # (auto) 0.7 10 ^3/uL (0.4-5.4); Lymphocytes % (auto) 5.9 % (10.0-50.0); Mean Corpuscular Hemoglobin 27.2 pg (28.0-32.0); Mean Corpuscular Hgb Conc. 33.7 g/dL (32.0-36.0); Mean Corpuscular Volume 80.8 fL (80.0-100.0); Monocytes # (auto) 0.7 10 ^3/uL (0-1.3); Monocytes % (auto) 5.6 % (0.0-12.0); Neutrophils # (auto) 10.8 10 ^3/uL (1.6-8.6); Neutrophils % (auto) 86.2 % (37.0-80.0); Platelet Count (auto) 244 10^3/uL (140-450); Red Blood Cells 3.71 10^6/uL (4.5-5.90); White Blood Cell 12.5 10^3/uL (4.4-10.8)
[2023-12-10 07:26] LABS: Chloride 106 mmol/L (98-107); Potassium 4.6 mmol/L (3.5-5.1); Sodium 138 mmol/L (136-145)
[2023-12-10 07:27] LABS: Anion Gap 10 (5-15); Calcium 8.4 mg/dL (8.7-10.4); Carbon Dioxide 22 mmol/L (20-30)
[2023-12-10 07:31] LABS: INR 3.54 (0.9-1.15); Partial Thromboplastin Time 57.4 SEC (24.5-34.5); Prothrombin Time 34.2 sec (9.3-11.8)
[2023-12-10 07:32] LABS: BUN/Creatinine Ratio 12.1 (10.0-20.0); Blood Urea Nitrogen 59 mg/dL (9-23); Glucose 305 mg/dL (74-106)
[2023-12-10] MEDS: INSULIN LANTUS (GLARGINE) 1 /0.01ml (100units/ml) SC SCH (08:30)
[2023-12-10] MEDS ORDERED: DEXTROSE (50%) 50ML SYRG IV PRN (08:30)
[2023-12-10] MEDS: ACCU-CHEK COMFORT CURVE STRIP VI SCH (11:33)
[2023-12-10] MEDS: InsuLIN REG 1unit/0.01ml Soln (100units/ml) SC SCH (11:34)
[2023-12-11] VITALS (11 sets, daily range): BP systolic 105–154; BP diastolic 63–81; PULSE 67–109; RESP 16–21; TEMP 97.7–98.6; O2SAT 93–98
[2023-12-11 07:49] LABS: Basophils # (auto) 0.1 10 ^3/uL (0-0.2); Basophils % (auto) 0.7 % (0.0-2.0); Eosinophils # (auto) 0.4 10 ^3/uL (0-0.8); Eosinophils % (auto) 2.8 % (0.0-7.0); Hematocrit 31.4 % (41.0-53.0); Hemoglobin 10.4 g/dL (13.5-17.5); Lymphocytes # (auto) 0.9 10 ^3/uL (0.4-5.4); Lymphocytes % (auto) 6.6 % (10.0-50.0); Mean Corpuscular Hgb Conc. 33.3 g/dL (32.0-36.0); Mean Corpuscular Volume 81.1 fL (80.0-100.0); Monocytes # (auto) 0.9 10 ^3/uL (0-1.3); Monocytes % (auto) 6.8 % (0.0-12.0); Neutrophils # (auto) 10.8 10 ^3/uL (1.6-8.6); Neutrophils % (auto) 83.1 % (37.0-80.0); Platelet Count (auto) 293 10^3/uL (140-450); Red Blood Cells 3.87 10^6/uL (4.5-5.90); Red Cell Distribution Width 15.4 % (11.8-14.3)
[2023-12-11 08:08] LABS: INR 3.53 (0.9-1.15); Partial Thromboplastin Time 58.6 SEC (24.5-34.5); Prothrombin Time 34.1 sec (9.3-11.8)
[2023-12-11 08:10] LABS: Calcium 9.5 mg/dL (8.7-10.4); Chloride 105 mmol/L (98-107); Potassium 4.5 mmol/L (3.5-5.1); Sodium 136 mmol/L (136-145)
[2023-12-11 08:11] LABS: Anion Gap 9 (5-15); Carbon Dioxide 22 mmol/L (20-31)
[2023-12-11 08:16] LABS: BUN/Creatinine Ratio 12.3 (10.0-20.0); Blood Urea Nitrogen 54 mg/dL (9-23)
[2023-12-11 08:28] LABS: Glucose 280 mg/dL (74-106)
[2023-12-11] MEDS ORDERED: HEPARIN DRIP/D5W 100UNITS/ML 250 ML IV SCH (08:30)
[2023-12-11 14:15] LABS: INR 3.03 (0.9-1.15); Prothrombin Time 29.6 sec (9.3-11.8)
[2023-12-11] MEDS ORDERED: WARFARIN SODIUM 5 MG TAB PO ONE (17:00)
[2023-12-11] MEDS: VANCOMYCIN 1GM/200ML 200 ML IV ONE (18:21)
[2023-12-12] VITALS (10 sets, daily range): BP systolic 127–166; BP diastolic 58–76; PULSE 74–102; RESP 15–20; TEMP 97.5–98.2; O2SAT 92–98
[2023-12-12] MEDS: INSULIN LANTUS (GLARGINE) 1 /0.01ml (100units/ml) SC SCH (06:46)
[2023-12-12 06:56] LABS: Eosinophils # (auto) 0.3 10 ^3/uL (0-0.8); Monocytes # (auto) 0.8 10 ^3/uL (0-1.3); Red Cell Distribution Width 15.1 % (11.8-14.3)
[2023-12-12 06:58] LABS: Basophils # (auto) 0.1 10 ^3/uL (0-0.2); Basophils % (auto) 0.8 % (0.0-2.0); Eosinophils % (auto) 2.2 % (0.0-7.0); Hematocrit 31.1 % (41.0-53.0); Hemoglobin 10.4 g/dL (13.5-17.5); Lymphocytes % (auto) 7.4 % (10.0-50.0); Mean Corpuscular Hgb Conc. 33.3 g/dL (32.0-36.0); Mean Corpuscular Volume 80.9 fL (80.0-100.0); Monocytes % (auto) 5.7 % (0.0-12.0); Neutrophils # (auto) 11.1 10 ^3/uL (1.6-8.6); Neutrophils % (auto) 83.9 % (37.0-80.0); Platelet Count (auto) 315 10^3/uL (140-450); Red Blood Cells 3.85 10^6/uL (4.5-5.90); White Blood Cell 13.2 10^3/uL (4.4-10.8)
[2023-12-12 07:08] LABS: Anion Gap 10 (5-15); Calcium 9.5 mg/dL (8.7-10.4); Carbon Dioxide 20 mmol/L (20-31); Chloride 107 mmol/L (98-107); Potassium 4.8 mmol/L (3.5-5.1); Sodium 137 mmol/L (136-145)
[2023-12-12 07:10] LABS: INR 2.54 (0.9-1.15); Partial Thromboplastin Time 46.9 SEC (24.5-34.5); Prothrombin Time 25.1 sec (9.3-11.8)
[2023-12-12 07:14] LABS: Glucose 264 mg/dL (74-106)
[2023-12-12 07:15] LABS: BUN/Creatinine Ratio 11.8 (10.0-20.0); Blood Urea Nitrogen 48 mg/dL (9-23)
[2023-12-12] MEDS ORDERED: HEPARIN DRIP/D5W 100UNITS/ML 250 ML IV SCH (13:45)
[2023-12-12] MEDS: HEPARIN DRIP/D5W 100UNITS/ML 250 ML IV SCH (14:47)
[2023-12-12 22:51] LABS: INR 2.19 (0.9-1.15); Prothrombin Time 21.9 sec (9.3-11.8)
[2023-12-12 23:00] LABS: Partial Thromboplastin Time 73.3 SEC (24.5-34.5)
[2023-12-13] VITALS (9 sets, daily range): BP systolic 133–156; BP diastolic 58–76; PULSE 75–103; RESP 18–20; TEMP 97.6–98.6; O2SAT 93–99
[2023-12-13 03:46] LABS: Alanine Aminotransferase 51 U/L (7-40); Albumin 3.6 g/dL (3.2-4.8); Alkaline Phosphatase 122 U/L (46-116); Anion Gap 6 (5-15); Aspartate Aminotransferase 60 U/L (13-40); BUN/Creatinine Ratio 14.3 (10.0-20.0); Blood Urea Nitrogen 53 mg/dL (9-23); Calcium 9.3 mg/dL (8.7-10.4); Carbon Dioxide 22 mmol/L (20-31); Chloride 108 mmol/L (98-107); Glucose 251 mg/dL (74-106); Potassium 4.5 mmol/L (3.5-5.1); Sodium 136 mmol/L (136-145)
[2023-12-13 03:47] LABS: Bilirubin, Total 0.5 mg/dL (0.2-1.0); Total Protein 6.8 g/dL (5.7-8.2)
[2023-12-13 03:54] LABS: Eosinophils # (auto) 0.4 10 ^3/uL (0-0.8); Lymphocytes # (auto) 1.3 10 ^3/uL (0.4-5.4); Monocytes # (auto) 0.8 10 ^3/uL (0-1.3)
[2023-12-13 03:57] LABS: Basophils # (auto) 0.2 10 ^3/uL (0-0.2); Basophils % (auto) 1.3 % (0.0-2.0); Eosinophils % (auto) 2.7 % (0.0-7.0); Hematocrit 30.4 % (41.0-53.0); Hemoglobin 10.1 g/dL (13.5-17.5); Lymphocytes % (auto) 10.1 % (10.0-50.0); Mean Corpuscular Hemoglobin 26.6 pg (28.0-32.0); Mean Corpuscular Hgb Conc. 33.3 g/dL (32.0-36.0); Monocytes % (auto) 5.9 % (0.0-12.0); Neutrophils # (auto) 10.6 10 ^3/uL (1.6-8.6); Platelet Count (auto) 359 10^3/uL (140-450); Red Cell Distribution Width 15.2 % (11.8-14.3); White Blood Cell 13.2 10^3/uL (4.4-10.8)
[2023-12-13 06:48] LABS: INR 2.05 (0.9-1.15); Partial Thromboplastin Time 53.8 SEC (24.5-34.5)
[2023-12-13 06:49] LABS: Prothrombin Time 20.6 sec (9.3-11.8)
[2023-12-13 14:28] LABS: INR 1.88 (0.9-1.15); Partial Thromboplastin Time 46.1 SEC (24.5-34.5)
[2023-12-13] MEDS: HEPARIN DRIP/D5W 100UNITS/ML 250 ML IV SCH (15:42)
[2023-12-13 22:16] LABS: INR 1.74 (0.9-1.15); Prothrombin Time 17.7 sec (9.3-11.8)
[2023-12-13 22:33] LABS: Partial Thromboplastin Time 94.8 SEC (24.5-34.5)
[2023-12-14] VITALS (13 sets, daily range): BP systolic 127–160; BP diastolic 60–74; PULSE 65–97; RESP 16–20; TEMP 97.7–98.3; O2SAT 94–99
[2023-12-14 08:08] LABS: Anion Gap 9 (5-15); Calcium 9.6 mg/dL (8.7-10.4); Carbon Dioxide 24 mmol/L (20-31); Chloride 106 mmol/L (98-107); Potassium 4.4 mmol/L (3.5-5.1); Sodium 139 mmol/L (136-145)
[2023-12-14 08:13] LABS: Hemoglobin 10.5 g/dL (13.5-17.5); Red Cell Distribution Width 15.2 % (11.8-14.3)
[2023-12-14 08:14] LABS: Blood Urea Nitrogen 58 mg/dL (9-23); Glucose 233 mg/dL (74-106)
[2023-12-14 08:15] LABS: Mean Corpuscular Hemoglobin 27.2 pg (28.0-32.0); Mean Corpuscular Hgb Conc. 33.9 g/dL (32.0-36.0); Mean Corpuscular Volume 80.4 fL (80.0-100.0); Platelet Count (auto) 394 10^3/uL (140-450); Red Blood Cells 3.85 10^6/uL (4.5-5.90); White Blood Cell 14.1 10^3/uL (4.4-10.8)
[2023-12-14 08:21] LABS: Basophils % (manual) 0 (0.0-2.0); Blast Cells 0; Myelocytes % 0; Promyelocytes % 0; Reactive Lymphocytes 0
[2023-12-14 08:45] LABS: INR 1.52 (0.9-1.15); Prothrombin Time 15.6 sec (9.3-11.8)
[2023-12-14 11:30] LABS: Band Neutrophils % (manual) 5; Eosinophils % (manual) 1 (0-7); Lymphocytes % (manual) 16 (10.0-50.0); Metamyelocytes % 2; Monocytes % (manual) 4 (0-12); Platelet Estimate Adequate
[2023-12-14] MEDS ORDERED: LIDOCAINE HCL 2% TOP JELLY 5ML TOP ONE (11:38)
[2023-12-14] MEDS ORDERED: MIDAZOLAM HCL 2MG/2ML 2ml VIAL (1mg/ml) ONE (11:38)
[2023-12-14] MEDS ORDERED: fentaNYL CITRATE 100 MCG/2 ML VL ONE (11:38)
[2023-12-14] MEDS ORDERED: MEPERIDINE HCL (50 MG/ML) 1 ML VIAL ONE (11:38)
[2023-12-14] MEDS ORDERED: LIDOCAINE 1% INJ PF 5ML AMP ONE (11:38)
[2023-12-14] MEDS ORDERED: SODIUM CHLORIDE LOCK 10 ML ONE (11:39)
[2023-12-14] MEDS ORDERED: ONDANSETRON HCL 4 MG/2 ML VIAL ONE (11:39)
[2023-12-14] MEDS ORDERED: PROPOFOL 10 MG/ML 20 ML IV ONE (11:39)
[2023-12-14] MEDS ORDERED: ROCURONIUM 10MG/ML 10ML VIAL IV ONE (11:39)
[2023-12-14] MEDS ORDERED: KETAMINE 50mg/ML 1ml syringe ONE (11:40)
[2023-12-14] MEDS: METOCLOPRAMIDE HCL 5MG/ml INJ 2ml VIAL IV ONE (11:45)
[2023-12-14] MEDS: ACCU-CHEK COMFORT CURVE STRIP VI ONE (11:45)
[2023-12-14] MEDS ORDERED: MORPHINE SULFATE INJ 2 MG/ml SYRG IV PRN (11:45)
[2023-12-14] MEDS ORDERED: HYDROmorphone HCL 2 MG/ML VL/or syr IV PRN ×4 (11:45→15:30)
[2023-12-14] MEDS: IOHEXOL 300 MG/ML 100ML BOTTLE IJ ONE (13:57)
[2023-12-14] MEDS ORDERED: GLYCOPYRROLATE 0.2 MG/ML 1ML VIAL ONE (15:15)
[2023-12-14] MEDS: ONDANSETRON HCL 4 MG/2 ML VIAL IV ONE (15:30)
[2023-12-14] MEDS ORDERED: NEOSTIGMINE 1 MG/ML INJ (10mg/10ML VIAL) ONE (15:43)
[2023-12-14] MEDS: HYDROmorphone HCL 2 MG/ML VL/or syr IV ONE (16:18)
[2023-12-15] VITALS (7 sets, daily range): BP systolic 111–147; BP diastolic 61–75; PULSE 82–102; RESP 18–20; TEMP 97.6–98.2; O2SAT 92–93
[2023-12-15 07:09] LABS: Hemoglobin 10.7 g/dL (13.5-17.5); White Blood Cell 13.2 10^3/uL (4.4-10.8)
[2023-12-15 07:11] LABS: Hematocrit 32.4 % (41.0-53.0); Mean Corpuscular Hemoglobin 26.5 pg (28.0-32.0); Mean Corpuscular Hgb Conc. 32.9 g/dL (32.0-36.0); Mean Corpuscular Volume 80.3 fL (80.0-100.0); Platelet Count (auto) 412 10^3/uL (140-450); Red Blood Cells 4.04 10^6/uL (4.5-5.90); Red Cell Distribution Width 15.4 % (11.8-14.3)
[2023-12-15 07:35] LABS: Calcium 9.2 mg/dL (8.7-10.4); Chloride 105 mmol/L (98-107); Potassium 4.8 mmol/L (3.5-5.1); Sodium 138 mmol/L (136-145)
[2023-12-15 07:36] LABS: Anion Gap 10 (5-15); Carbon Dioxide 23 mmol/L (20-31)
[2023-12-15 07:41] LABS: BUN/Creatinine Ratio 16.7 (10.0-20.0); Blood Urea Nitrogen 49 mg/dL (9-23); Glucose 243 mg/dL (74-106)
[2023-12-15 07:54] LABS: Basophils % (manual) 0 (0.0-2.0); Blast Cells 0; Myelocytes % 0; Promyelocytes % 0; Reactive Lymphocytes 0
[2023-12-15 10:57] LABS: Band Neutrophils % (manual) 5; Eosinophils % (manual) 2 (0-7); Lymphocytes % (manual) 6 (10.0-50.0); Metamyelocytes % 3; Monocytes % (manual) 6 (0-12); Platelet Estimate Adequate
[2023-12-16 01:00] VITALS: BP 116/55; PULSE 92; RESP 20; TEMP 98.2; O2SAT 94
[2023-12-16 05:00] VITALS: BP 126/57; PULSE 81; RESP 20; TEMP 98.1; O2SAT 95
[2023-12-16 07:34] LABS: Hematocrit 31.6 % (41.0-53.0); Hemoglobin 10.6 g/dL (13.5-17.5); Mean Corpuscular Hemoglobin 27.3 pg (28.0-32.0); Mean Corpuscular Hgb Conc. 33.7 g/dL (32.0-36.0); Mean Corpuscular Volume 80.9 fL (80.0-100.0); Platelet Count (auto) 376 10^3/uL (140-450); Red Cell Distribution Width 15.4 % (11.8-14.3); White Blood Cell 12.5 10^3/uL (4.4-10.8)
[2023-12-16 07:40] LABS: Chloride 106 mmol/L (98-107); Potassium 4.8 mmol/L (3.5-5.1); Sodium 138 mmol/L (136-145)
[2023-12-16 07:41] LABS: Anion Gap 7 (5-15); Calcium 9.6 mg/dL (8.7-10.4); Carbon Dioxide 25 mmol/L (20-31)
[2023-12-16 07:46] LABS: BUN/Creatinine Ratio 16.9 (10.0-20.0); Blood Urea Nitrogen 44 mg/dL (9-23); Glucose 240 mg/dL (74-106)
[2023-12-16 07:56] LABS: Band Neutrophils % (manual) 0; Basophils % (manual) 0 (0.0-2.0); Blast Cells 0; Metamyelocytes % 0; Myelocytes % 0; Promyelocytes % 0; Reactive Lymphocytes 0
[2023-12-16 08:00] VITALS: PULSE 79; RESP 22; O2SAT 97
[2023-12-16 09:00] VITALS: BP 124/61; PULSE 79; RESP 22; TEMP 97.8; O2SAT 97
[2023-12-16 09:10] LABS: Eosinophils % (manual) 3 (0-7); Lymphocytes % (manual) 11 (10.0-50.0); Monocytes % (manual) 7 (0-12)
[2023-12-16 09:11] LABS: Platelet Estimate Adequate
[2023-12-16 11:21] VITALS: BP 124/61; PULSE 79; RESP 22; TEMP 97.8; O2SAT 97
== END 2023-12-16 12:30 | disposition home or self-care (01) | DRG 853 ==
LOC: EDBD 17:41 → ER 17:41 → TELE 12-08 02:37 → TELE-CENTR 12-08 23:38 → CENTRAL 12-10 11:23
PROVIDERS: ADMIT Internal Medicine; ATTEND Internal Medicine
PROC: 0TC68ZZ Extirpation of Matter from Right Ureter, Via Natural or Artificial Opening Endoscopic (ICD-10-PCS; 2023-12-14)
PROC: 0T788DZ Dilation of Bilateral Ureters with Intraluminal Device, Via Natural or Artificial Opening Endoscopic (ICD-10-PCS; principal; 2023-12-14 13:34)
DX: A41.9 Sepsis, unspecified organism (principal); J96.01 Acute respiratory failure with hypoxia; N18.6 End stage renal disease; N17.9 Acute kidney failure, unspecified; N13.6 Pyonephrosis; N20.2 Calculus of kidney with calculus of ureter; Z68.44 Body mass index [BMI] 60.0-69.9, adult; Z20.822 Contact with and (suspected) exposure to COVID-19; E78.5 Hyperlipidemia, unspecified; E11.22 Type 2 diabetes mellitus with diabetic chronic kidney disease; I50.9 Heart failure, unspecified; G47.30 Sleep apnea, unspecified; E03.9 Hypothyroidism, unspecified; R65.20 Severe sepsis without septic shock; K57.30 Diverticulosis of large intestine without perforation or abscess without bleeding; E66.01 Morbid (severe) obesity due to excess calories; Z95.2 Presence of prosthetic heart valve; Z87.442 Personal history of urinary calculi; Z95.1 Presence of aortocoronary bypass graft; Z79.4 Long term (current) use of insulin; Z79.82 Long term (current) use of aspirin; Z79.899 Other long term (current) drug therapy; Z99.2 Dependence on renal dialysis
CPT/HCPCS: 36415; 71045; 74018; 74176; 76000; 76775; 80048; 80053; 80202; 80307; 81001; 82360; 82570; 82962; 83036; 83605; 83930; 83935; 84300; 85007; 85025; 85027; 85379; 85610; 85730; 87040; 87077; 87081; 87086; 87088; 87186; 87205; 87426; 93005; 93306; 93970; 94660; 97116; 97163; 97530; 99291; G0378; J1815; J1956; J2250; J2405; J2704

== ENCOUNTER → 2023-12-28 | Outpatient (CLI) | payer OTHER ==
[~2023-12-28] MED LIST changes: -LEVO100T81 PO; -LISI2.5T47 PO; +TAMS0.4C39 PO
[2023-12-28 11:59] LABS: Chloride 108 mmol/L (98-107); Potassium 5.5 mmol/L (3.5-5.1); Sodium 137 mmol/L (136-145)
[2023-12-28 12:00] LABS: Anion Gap 8 (5-15); Calcium 10.3 mg/dL (8.7-10.4); Carbon Dioxide 21 mmol/L (20-31)
[2023-12-28 12:05] LABS: BUN/Creatinine Ratio 16.9 (10.0-20.0); Blood Urea Nitrogen 30 mg/dL (9-23); Glucose 151 mg/dL (74-106)
== END | disposition home or self-care (01) ==
LOC: LAB 10:54
PROVIDERS: ATTEND Urology
DX: N20.0 Calculus of kidney (principal); N40.0 Benign prostatic hyperplasia without lower urinary tract symptoms
CPT/HCPCS: 36415; 80048

== ENCOUNTER → 2024-02-05 | Outpatient (CLI) | payer OTHER ==
[2024-02-05 10:25] LABS: Urine Bacteria None Seen /hpf (None Seen)
[2024-02-05 10:56] LABS: Basophils # (auto) 0.1 10 ^3/uL (0-0.2); Basophils % (auto) 0.8 % (0.0-2.0); Eosinophils # (auto) 0.4 10 ^3/uL (0-0.8); Hemoglobin 9.6 g/dL (13.5-17.5); Lymphocytes # (auto) 1.4 10 ^3/uL (0.4-5.4); Lymphocytes % (auto) 13.2 % (10.0-50.0); Mean Corpuscular Hemoglobin 26.1 pg (28.0-32.0); Mean Corpuscular Hgb Conc. 32.9 g/dL (32.0-36.0); Mean Corpuscular Volume 79.3 fL (80.0-100.0); Monocytes # (auto) 0.7 10 ^3/uL (0-1.3); Monocytes % (auto) 6.3 % (0.0-12.0); Neutrophils % (auto) 75.7 % (37.0-80.0); Platelet Count (auto) 350 10^3/uL (140-450); Red Blood Cells 3.66 10^6/uL (4.5-5.90); Red Cell Distribution Width 15.8 % (11.8-14.3); White Blood Cell 10.6 10^3/uL (4.4-10.8)
[2024-02-05 11:08] LABS: Alanine Aminotransferase 36 U/L (7-40); Alkaline Phosphatase 76 U/L (46-116); Anion Gap 8 (5-15); Aspartate Aminotransferase 27 U/L (13-40); BUN/Creatinine Ratio 10.1 (10.0-20.0); Blood Urea Nitrogen 19 mg/dL (9-23); Calcium 9.6 mg/dL (8.7-10.4); Carbon Dioxide 28 mmol/L (20-31); Chloride 105 mmol/L (98-107); Glucose 195 mg/dL (74-106); Potassium 4.6 mmol/L (3.5-5.1); Sodium 141 mmol/L (136-145); Uric Acid 6.3 mg/dL (3.7-9.2)
[2024-02-05 11:09] LABS: Total Protein 7.1 g/dL (5.7-8.2)
[2024-02-05 11:47] LABS: Urine Blood 2+ /uL (Negative); Urine Clarity Ex.Turbid (Clear); Urine Color Amber (Yellow); Urine Protein, UAD 2+ (Negative); Urine Specific Gravity 1.009 (1.001-1.035); Urine Urobilinogen Normal (Negative); Urine WBC 5865 /hpf (0 - 3); Urine WBC Clumps PRESENT /hpf (None Seen)
[2024-02-05 11:52] LABS: Protein, Urine 224.7 mg/dL (1-14)
[2024-02-05 11:54] LABS: Creatinine, Urine 85.38 mg/dL (30.0-125.0); Urine Protein/Creatinine Ratio 2.63
== END | disposition home or self-care (01) ==
LOC: LAB 10:08
PROVIDERS: ATTEND Student in an Organized Health Care Education/Training Program
DX: E11.21 Type 2 diabetes mellitus with diabetic nephropathy (principal); E21.3 Hyperparathyroidism, unspecified; N39.0 Urinary tract infection, site not specified; N18.30 Chronic kidney disease, stage 3 unspecified; E11.22 Type 2 diabetes mellitus with diabetic chronic kidney disease; D63.1 Anemia in chronic kidney disease; R80.9 Proteinuria, unspecified; M10.9 Gout, unspecified; E55.9 Vitamin D deficiency, unspecified
CPT/HCPCS: 36415; 80053; 81001; 82570; 84156; 84550; 85025; 87086

== ENCOUNTER → 2024-03-21 | Outpatient (CLI) | payer OTHER ==
[~2024-03-21] MED LIST changes: +ALLO100T PO; +INSU100I52 SC; +POTA1080 PO; +WARF-66 PO
[2024-03-21 12:05] LABS: Urine Bacteria None Seen /hpf (None Seen)
[2024-03-21 12:37] LABS: Basophils # (auto) 0.1 10 ^3/uL (0-0.2); Basophils % (auto) 0.8 % (0.0-2.0); Eosinophils # (auto) 0.2 10 ^3/uL (0-0.8); Eosinophils % (auto) 1.1 % (0.0-7.0); Hematocrit 27.5 % (41.0-53.0); Hemoglobin 9.1 g/dL (13.5-17.5); Lymphocytes # (auto) 0.9 10 ^3/uL (0.4-5.4); Lymphocytes % (auto) 5.5 % (10.0-50.0); Mean Corpuscular Hemoglobin 25.3 pg (28.0-32.0); Mean Corpuscular Hgb Conc. 32.9 g/dL (32.0-36.0); Mean Corpuscular Volume 76.9 fL (80.0-100.0); Monocytes # (auto) 1.4 10 ^3/uL (0-1.3); Monocytes % (auto) 8.3 % (0.0-12.0); Neutrophils # (auto) 14.4 10 ^3/uL (1.6-8.6); Neutrophils % (auto) 84.3 % (37.0-80.0); Platelet Count (auto) 324 10^3/uL (140-450); Red Blood Cells 3.57 10^6/uL (4.5-5.90); Red Cell Distribution Width 17.4 % (11.8-14.3); White Blood Cell 17.1 10^3/uL (4.4-10.8)
[2024-03-21 12:51] LABS: Urine Blood 2+ /uL (Negative); Urine Clarity Ex.Turbid (Clear); Urine Protein, UAD 2+ (Negative); Urine Specific Gravity 1.009 (1.001-1.035); Urine Squamous Epithelial Cell None Seen /hpf (<5); Urine Urobilinogen Normal (Negative); Urine WBC 3800 /hpf (0 - 3); Urine WBC Clumps PRESENT /hpf (None Seen)
[2024-03-21 12:54] LABS: Urine Color Amber (Yellow)
[2024-03-21 13:50] LABS: Albumin 4.1 g/dL (3.2-4.8); Anion Gap 12 (5-15); BUN/Creatinine Ratio 15.2 (10.0-20.0); Calcium 10.1 mg/dL (8.7-10.4); Chloride 105 mmol/L (98-107); LDL Cholesterol 74 mg/dL (< 100); Triglycerides 110 mg/dL (< 150)
[2024-03-21 13:51] LABS: Cholesterol 127 mg/dL (< 200); Total Protein 7.9 g/dL (5.7-8.2)
[2024-03-21 15:03] LABS: Carbon Dioxide 17 mmol/L (20-31); Sodium 134 mmol/L (136-145)
[2024-03-21 15:04] LABS: Alanine Aminotransferase 87 U/L (7-40); Alkaline Phosphatase 201 U/L (46-116); Aspartate Aminotransferase 56 U/L (13-40); Blood Urea Nitrogen 62 mg/dL (9-23); Glucose 173 mg/dL (74-106); HDL Cholesterol 30 mg/dL (40-59)
[2024-03-21 15:29] LABS: Potassium 6.7 mmol/L (3.5-5.1)
== END | disposition home or self-care (01) ==
LOC: LAB 11:12
PROVIDERS: ATTEND Nurse Practitioner
DX: E11.9 Type 2 diabetes mellitus without complications (principal); I10 Essential (primary) hypertension; E78.5 Hyperlipidemia, unspecified
CPT/HCPCS: 36415; 80053; 80061; 81001; 83036; 84443; 85025

== ENCOUNTER 2024-03-23 13:46 | Inpatient (IN) | payer OTHER ==
[~2024-03-23] VITALS: Ht 188 cm; Wt 138.4 kg
--- NOTE | 2024-03-23 14:51 | ED.PDOC ---
History of Present Illness HPI Comments 68y M who presents to the ED for chief complaint of abnormal labs. Pt states he had labs drawn on Thursday and states he received call today telling him to come to local ED after his labs showed elevated potassium level. Pt in the ED, denies chest pain, shortness of breath, headache, dizziness, nausea, or vomiting. Pt otherwise states he is on blood thinner warfarin for history of blood clots. Patient also endorses significant dysuria but no hematuria and states that his urine appears cloudy. No history of prostatitis or pain with defecation. Pt otherwise denies any other symptoms at this time. Time Seen by MD: 14:27 Primary Care Provider: DINORA Reviewed Notes: Nurses Notes Allergies: Coded Allergies: NO KNOWN ALLERGIES (Unverified , 11/17/10) Home Meds Reported Medications Lisinopril (Lisinopril) 5 Mg Tab, 1 TAB PO DAILY for 90 Days, #90 12/10/23 Levothyroxine Sodium (Levothyroxine Sodium) 175 Mcg Tab, 1 TAB PO DAILY for 90 Days, #90 12/10/23 Tamsulosin Hcl (Tamsulosin Hcl) 0.4 Mg Cap, 1 CAP PO DAILY, #30 CAP 5 Refills 12/08/23 Digoxin (Digoxin) 125 Mcg Tab, 125 MCG PO DAILY, TAB 10/28/23 Insulin Glargine (Lantus Solostar) 100 Unit/Ml Inj, 100 UNIT SC DAILY, INJ 10/28/23 Warfarin Sodium (Warfarin Sodium) 1 Mg Tab, PO, TAB 10/28/23 Aspirin (Aspirin) 325 Mg Tab, 81 MG PO DAILY for 30 Days, MG 10/28/23 Glipizide (Glipizide) 5 Mg Tab, 5 MG PO BID for 30 Days, MG 10/28/23 Metoprolol Tartrate (Metoprolol Tartrate) 25 Mg Tab, 25 MG PO BID, TAB 10/28/23 Metformin Hydrochloride (Metformin Hcl) 500 Mg Tab, 1000 MG PO BID for 30 Days, MG 10/28/23 Rosuvastatin Calcium (Crestor) 40 Mg Tab, 40 MG PO DAILY, TAB 10/28/23 Information Source: Patient Past Medical History PAST MEDICAL HISTORY: CHF, DM, ESRD, High Lipids, Kidney Stones, Thyroid, UTI'S Surgical History: CABG Family History Family History: Reviewed,noncontributory to illness, No family hx ofKidnmelissa huma Social History Smoker: Non-Smoker Alcohol: Denies ETOH Use Drugs: Denies Drug Use Lives In: Home Constitutional: denies: chills, diaphoresis, fatigue, fever, malaise, sweats, w eakness, others EENTM: denies: blurred vision, double vision, ear bleeding, ear discharge, ear drainage, ear pain, ear ringing, eye pain, eye redness, hearing loss, mouth pain, mouth swelling, nasal discharge, nose bleeding, nose congestion, nose pain, photophobia, tearing, throat pain, throat swelling, voice changes, others Respiratory: denies: cough, hemoptysis, orthopnea, SOB at rest, shortness of breath, SOB with excertion, stridor, wheezing, others Cardiovascular: denies: chest pain, dizzy spells, diaphoresis, Dyspnea on exertion, edema, irregular heart beat, left arm pain, lightheadedness, palpitations, PND, syncope, others Gastrointestinal: denies: abdomen distended, abdominal pain, blood streaked bowels, constipated, diarrhea, dysphagia, difficulty swallowing, hematemesis, melena, nausea, poor appetite, poor fluid intake, rectal bleeding, rectal pain, vomiting, others Genitourinary: denies: burning, dysuria, flank pain, frequency, hematuria, incontinence, penile discharge, penile sore, pain, testicle pain, testicle swe lling, urgency, others Neurological: denies: dizziness, fainting, headache, left sided numbness, left sided weakness, numbness, paresthesia, pre-existing deficit, right sided numbness, right sided weakness, seizure, speech problems, tingling, tremors, weakness, others Musculoskeletal: denies: back pain, gout, joint pain, joint swelling, muscle pain, muscle stiffness, neck pain, others Integumetry: denies: bruises, change in color, change in hair/nails, dryness, laceration, lesions, lumps, rash, wounds, others Allergic/Immunocompromised: denies: Difficulty Healing, Frequent Infections, Hives, Itching, others Hematologic/Lymphatic: denies: anemia, blood clots, easy bleeding, easy bruising, swollen glands, others Endocrine: denies: excessive hunger, excessive sweating, excessive thirst, excessive urination, flushing, intolerance to cold, intolerance to heat, unexplained weight gain, unexplained weight loss, others Psychiatric: denies: anxiety, bipolar disorder, depression, hopeless, panic disorder, schizophrenia, sleepless, suicidal, others All Other Systems: Reviewed and Negative Physical Exam General Appearance: No Apparent Distress, Normal HEENT: Normal ENT Inspection, Pharynx Normal, TMs Normal Neck: Full Range of Motion, Non-Tender, Normal, Normal Inspection Respiratory: Chest Non-Tender, Lungs Clear, No Accessory Muscle Use, No Respiratory Distress, Normal Breath Sounds Cardiovascular: No Edema, No JVD, No Murmur, No Gallop, Normal Peripheral Pulses, Regular Rate/Rhythm Breast Exam: Deferred Gastrointestinal: No Organomegaly, Normal Bowel Sounds, Soft, Other (No CVAT bilaterally, positive tenderness to palpation in the suprapubic area) Genitalia: Deferred Pelvic: Deferred Rectal: Deferred Extremities: No calf tenderness, Normal capillary refill, Normal inspection, Normal range of motion, Non-tender, No pedal edema Musculoskeletal : Apperance: Normal Neurologic: Alert, 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 Was a procedure done?: No Differential Dx Considerations may include: hyperkalemia, CKD, ESRD, UTI, pyelonephritis, prostatitis X-Ray, Labs, Meds, VS Vital Signs Date Time Temp Pulse Resp B/P (MAP) Pulse Ox O2 Delivery O2 Flow Rate FiO2 03/23/24 18:45 98.0 69 16 94/51 (65) 92 98.0 03/23/24 17:51 98.0 93 16 110/73 (85) 97 98.0 03/23/24 14:00 98.6 90 18 93/50 (64) 96 85/55 (65) Lab Test 03/23/24 19:21 03/23/24 15:19 03/23/24 14:53 03/23/24 14:49 Range/Units Lactic Acid Level Pending White Blood Count 12.7 #H 4.4-10.8 10^3/uL Red Blood Count 3.61 L 4.5-5.90 10^6/uL Hemoglobin 8.9 L 13.5-17.5 g/dL Hematocrit 27.6 L 41.0-53.0 % Mean Corpuscular Volume 76.5 L 80.0-100.0 fL Mean Corpuscular Hemoglobin 24.6 L 28.0-32.0 pg Mean Corpuscular Hemoglobin Concent 32.1 32.0-36.0 g/dL Red Cell Distribution Width 17.4 H 11.8-14.3 % Platelet Count 349 140-450 10^3/uL Mean Platelet Volume 6.7 L 6.9-10.8 fL Neutrophils (%) (Auto) 80.0 37.0-80.0 % Lymphocytes (%) (Auto) 8.2 L 10.0-50.0 % Monocytes (%) (Auto) 7.1 0.0-12.0 % Eosinophils (%) (Auto) 3.5 0.0-7.0 % Basophils (%) (Auto) 1.2 0.0-2.0 % Neutrophils # (Auto) 10.2 H 1.6-8.6 10 ^3/uL Lymphocytes # (Auto) 1.0 0.4-5.4 10 ^3/uL Monocytes # (Auto) 0.9 0-1.3 10 ^3/uL Eosinophils # (Auto) 0.4 0-0.8 10 ^3/uL Basophils # (Auto) 0.1 0-0.2 10 ^3/uL Nucleated Red Blood Cells 0.1 % Sodium Level 134 L 136-145 mmol/L Potassium Level 5.1 3.5-5.1 mmol/L Chloride Level 105 98-107 mmol/L Carbon Dioxide Level 20 20-31 mmol/L Anion Gap 9 5-15 Blood Urea Nitrogen 58 H 9-23 mg/dL Creatinine 3.49 H 0.700-1.30 mg/dL Glomerular Filtration Rate Calc 18 >90 mL/min BUN/Creatinine Ratio 16.6 10.0-20.0 Serum Glucose 242 H 74-106 mg/dL Calcium Level 10.0 8.7-10.4 mg/dL POC Glucose 243 H 70-106 mg/dl Urine Color Brown H Yellow Urine Clarity Ex.turbid Clear Urine pH 6.0 5.0-9.0 Urine Specific Collins 1.010 1.001-1.035 Urine Protein 2+ H Negative Urine Ketones Negative Negative Urine Blood 3+ H Negative /uL Urine Nitrite Negative Negative Urine Bilirubin Negative Negative Urine Urobilinogen Normal Negative mg/dL Urine Leukocyte Esterase 3+ Negative /uL Urine RBC 371 0 - 3 /hpf Urine WBC 4424 0 - 3 /hpf Urine WBC Clumps Present None Seen /hpf Urine Squamous Epithelial Cells None seen <5 /hpf Urine Bacteria None seen None Seen /hpf Urine Glucose 1+ H Normal mg/dL X-Ray, Labs, Meds, VS Comment 68-year-old male with a history of CKD presenting here today for concern for hyperkalemia seen on labs are done by his primary care provider. Potassium level today unremarkable but a UA was done after patient endorsed history of dysuria and was found to be floridly positive for UTI versus pyelonephritis. As a result, patient was started on ceftriaxone IV and fluids after cultures were drawn and patient was admitted for treatment of pyelonephritis in the setting of CKD. Time of 1ST Reevaluation: 15:00 Reevaluation 1ST: Unchanged Time of 2ND Reevaluation: 19:20 Reevaluation 2ND: Improved Patient Education/Counseling: Diagnosis, Treatment, Prognosis Family Education/Counseling: No Family Present Sepsis Sepsis Reasesment Focused Exam Sepsis focused exam: focus exam completed (Sepsis was identified at 1821, antibiotics were ordered at 6:30 p.m.. Re-evaluation done by me at 7:22 p.m. shows patient with no evidence of tachycardia or crackles in his lungs.) Departure 1 Departure Time of Disposition: 19:22 Impression: Primary Impression: Pyelonephritis Additional Impressions: Sepsis History of chronic kidney disease Disposition: ADMITTED INPATIENT Admit to: Tele Condition: Guarded Critical Care Note Critical Care Time?: Yes (35 min-critical care time only) Stability Stability form required: No Heart Score Heart Score: Heart Score Response (Comments) Value History N/A 0 EKG N/A 0 Age N/A 0 Risk Factors N/A 0 Troponin N/A 0 Total 0 I personally scribed for ER ([email or web address]) on 03/23/24 at 15:43. Electronically submitted by Fernando Pope ([email or web address]). TERESA PELLETIER MD Mar 23, 2024 14:51 ER Mar 23, 2024 15:43
[2024-03-23 15:46] LABS: Basophils # (auto) 0.1 10 ^3/uL (0-0.2); Basophils % (auto) 1.2 % (0.0-2.0); Eosinophils # (auto) 0.4 10 ^3/uL (0-0.8); Eosinophils % (auto) 3.5 % (0.0-7.0); Hematocrit 27.6 % (41.0-53.0); Hemoglobin 8.9 g/dL (13.5-17.5); Lymphocytes % (auto) 8.2 % (10.0-50.0); Mean Corpuscular Hemoglobin 24.6 pg (28.0-32.0); Mean Corpuscular Hgb Conc. 32.1 g/dL (32.0-36.0); Mean Corpuscular Volume 76.5 fL (80.0-100.0); Monocytes # (auto) 0.9 10 ^3/uL (0-1.3); Monocytes % (auto) 7.1 % (0.0-12.0); Neutrophils # (auto) 10.2 10 ^3/uL (1.6-8.6); Nucleated Red Blood Cells % 0.1 %; Platelet Count (auto) 349 10^3/uL (140-450); Red Blood Cells 3.61 10^6/uL (4.5-5.90); Red Cell Distribution Width 17.4 % (11.8-14.3); White Blood Cell 12.7 10^3/uL (4.4-10.8)
[2024-03-23 15:56] LABS: Chloride 105 mmol/L (98-107); Potassium 5.1 mmol/L (3.5-5.1)
[2024-03-23 15:57] LABS: Anion Gap 9 (5-15)
[2024-03-23 15:58] LABS: Urine Bacteria None Seen /hpf (None Seen)
[2024-03-23 16:02] LABS: BUN/Creatinine Ratio 16.6 (10.0-20.0)
[2024-03-23 16:04] LABS: Blood Urea Nitrogen 58 mg/dL (9-23); Carbon Dioxide 20 mmol/L (20-31); Glucose 242 mg/dL (74-106); Sodium 134 mmol/L (136-145)
[2024-03-23 16:46] LABS: Urine Blood 3+ /uL (Negative); Urine Clarity Ex.Turbid (Clear); Urine Color Brown (Yellow); Urine Protein, UAD 2+ (Negative); Urine Squamous Epithelial Cell None Seen /hpf (<5); Urine Urobilinogen Normal (Negative); Urine WBC 4424 /hpf (0 - 3); Urine WBC Clumps PRESENT /hpf (None Seen)
[2024-03-23] MEDS: SODIUM CHLORIDE 0.9% 1,000 ML IV ONE (18:30)
--- NOTE | 2024-03-23 21:04 | DVHHPRES ---
History of Present Illness Resident Creating Document: SASHA TRINIDAD RESIDENT History of Present Illness This is a 68 years old male with past medical history of hypertension, hyperlipidemia, type 2 DM, hypothyroidism, CKD stage IV, kidney stone ,s/p bilateral stent, CAD, s/p CABG, mechanical heart valve, recurrent UTI presented to the ED with a chief complaint of abnormal lab done on 2 days ago last Thursday prior to this admission. The patient stated that he did blood work on Thursday and today he received call from PCP to come to the ER because potassium is high in his recent BMP. He also mentioned that he underwent right ureteral lithotripsy with bilateral exchange of stent and was treated for UTI during his hospital stay in December 2023. The patient complains of frequency , white cloudy urine, malaise and loss of appetite for last 1 week. The patient denies fever, chest pain, shortness of breath, dizziness, diaphoresis, hematuria, hematochezia my abdominal pain, nausea, vomiting, sick contact . Past Medical History Hypertension, hyperlipidemia, type 2 DM, hypothyroidism, CKD stage IV, kidney stone ,s/p bilateral stent, CAD, mechanical heart valve, recurrent UTI Past Surgical History CABG, right ureterolithotripsy with bilateral ureteral stent Family History None Past Social History Lives with family Nonsmoker, nonalcoholic and never tried any drugs Review of Systems Constitutional: Yes: Malaise; No: Fever, Chills, Sweats, Weakness, Other Eyes: No: Pain, Vision change, Conjunctivae inflammation, Eyelid inflammation, Other, Redness ENT: No: Ear pain, Ear discharge, Nose pain, Nose discharge, Nose congestion, Mouth pain, Mouth swelling, Throat pain, Throat swelling, Other Respiratory: No: Cough, Dry, Shortness of breath, SOB with excertion, Wheezing, Hemoptysis, Pleuritic Pain, Sputum, Wheezing, Other Cardiovascular: No: Chest Pain, Palpitations, Orthopnea, Paroxysmal Noc. Dyspnea, Edema, Lt Headedness, Other Gastrointestinal: No: Nausea, Vomiting, Abdominal Pain, Diarrhea, Constipation, Melena, Hematochezia, Other Genitourinary: Dysuria, Frequency; No Incontinence, No Hematuria, No Retention, No Other Musculoskeletal: No: other, neck pain, shoulder pain, arm pain, back pain, hand pain, leg pain, foot pain Skin: No: Rash, Lesions, Jaundice, Bruising, Other Neurological: No: Weakness, Numbness, Incoordination, Change in speech, Confusion, Seizures, Other Allergies: Coded Allergies: NO KNOWN ALLERGIES (Unverified , 11/17/10) Exam Vital Signs Vital Signs Date Time Temp Pulse Resp B/P (MAP) Pulse Ox O2 Delivery O2 Flow Rate FiO2 03/23/24 18:45 98.0 69 16 94/51 (65) 92 98.0 Exam Physical examination: General Appearance: Alert, Oriented X3, Cooperative, No acute distress HEENT: Atraumatic, PERRLA, EOMI, Mucous membrane moist/pink Respiratory: Clear to auscultation, Normal air movement Cardiovascular: Regular rate, Normal S1, Normal S2, No murmurs, no chest wall tenderness Abdominal: Normal bowel sounds, Soft, No tenderness, No hepatospenomegaly, No masses Extremities: Bilateral pedal edema +, No clubbing, No cyanosis, Normal pulses, No tenderness/swelling Skin: No rashes, No breakdown, No significant lesion Neuro: Normal gait, Normal speech, Strength at 5/5 X4 ext, Normal tone, Sensation intact, grossly intact cranial nerves. Psych/Mental Status: Mental status NL, Mood NL Labs/Xrays Labs Test 03/23/24 19:21 03/23/24 15:19 03/23/24 14:53 03/23/24 14:49 Range/Units Lactic Acid Level 1.3 0.4-2.0 mmol/L White Blood Count 12.7 #H 4.4-10.8 10^3/uL Red Blood Count 3.61 L 4.5-5.90 10^6/uL Hemoglobin 8.9 L 13.5-17.5 g/dL Hematocrit 27.6 L 41.0-53.0 % Mean Corpuscular Volume 76.5 L 80.0-100.0 fL Mean Corpuscular Hemoglobin 24.6 L 28.0-32.0 pg Mean Corpuscular Hemoglobin Concent 32.1 32.0-36.0 g/dL Red Cell Distribution Width 17.4 H 11.8-14.3 % Platelet Count 349 140-450 10^3/uL Mean Platelet Volume 6.7 L 6.9-10.8 fL Neutrophils (%) (Auto) 80.0 37.0-80.0 % Lymphocytes (%) (Auto) 8.2 L 10.0-50.0 % Monocytes (%) (Auto) 7.1 0.0-12.0 % Eosinophils (%) (Auto) 3.5 0.0-7.0 % Basophils (%) (Auto) 1.2 0.0-2.0 % Neutrophils # (Auto) 10.2 H 1.6-8.6 10 ^3/uL Lymphocytes # (Auto) 1.0 0.4-5.4 10 ^3/uL Monocytes # (Auto) 0.9 0-1.3 10 ^3/uL Eosinophils # (Auto) 0.4 0-0.8 10 ^3/uL Basophils # (Auto) 0.1 0-0.2 10 ^3/uL Nucleated Red Blood Cells 0.1 % Sodium Level 134 L 136-145 mmol/L Potassium Level 5.1 3.5-5.1 mmol/L Chloride Level 105 98-107 mmol/L Carbon Dioxide Level 20 20-31 mmol/L Anion Gap 9 5-15 Blood Urea Nitrogen 58 H 9-23 mg/dL Creatinine 3.49 H 0.700-1.30 mg/dL Glomerular Filtration Rate Calc 18 >90 mL/min BUN/Creatinine Ratio 16.6 10.0-20.0 Serum Glucose 242 H 74-106 mg/dL Calcium Level 10.0 8.7-10.4 mg/dL POC Glucose 243 H 70-106 mg/dl Urine Color Brown H Yellow Urine Clarity Ex.turbid Clear Urine pH 6.0 5.0-9.0 Urine Specific Newman 1.010 1.001-1.035 Urine Protein 2+ H Negative Urine Ketones Negative Negative Urine Blood 3+ H Negative /uL Urine Nitrite Negative Negative Urine Bilirubin Negative Negative Urine Urobilinogen Normal Negative mg/dL Urine Leukocyte Esterase 3+ Negative /uL Urine RBC 371 0 - 3 /hpf Urine WBC 4424 0 - 3 /hpf Urine WBC Clumps Present None Seen /hpf Urine Squamous Epithelial Cells None seen <5 /hpf Urine Bacteria None seen None Seen /hpf Urine Glucose 1+ H Normal mg/dL Assessment/Plan Assessment/Plan Assessment and plan: # Acute complicated cystitis # S/P right ureterolithotripsy with bilateral ureteral stents secondary to bilateral kidney stones - U/A is consistent with pyuria without bacteriuria - Ultrasound of the kidney revealed mild bilateral hydronephrosis and Left kidney midpole echogenic structure which may represent a renal stone measuring 6 mm - Ordered urine bacterial culture - IV ceftriaxone 1 g daily - Consulted urology # Type 2 diabetes mellitus, HbA1C 8.1% on 03/21/24 - Lantus 30 unit b.i.d and mild sliding scale of insulin # Stage 4 CKD - Strict I/O - Avoid nephrotoxic medication - Consulted Nephrology # History of CAD, s/p CABG - Aspirin 81 mg p.o. daily atorvastatin 80 mg at HS # Hypertensive heart disease - Metoprolol tartrate 25 mg p.o. b.i.d. and lisinopril 5 mg daily - Echo on 12/07 demonstrated EF 55%. # Chronic hypothyroidism - Levothyroxine 175 mcg at q.a.m. # History of mechanical heart valve - Warfarin 1 mg p.o. daily # PUD prophylaxis - Pepcid 20 mg p.o. daily # DVT prophylaxis - Patient is on warfarin Goal of care discussed with the patient for more than 20 minutes full code Plan discussed with Dr. Larson Plan discussed with: Patient, Other Date of Service: Mar 23, 2024 Billing Provider: MYA LARSON MD Common Visit Codes: 71275-FSNBSKG INP/OBS CARE (HIGH) Secondary Visit Codes: 70651-GNEWFRPN CARE PLAN 30 MINUTES SASHA TRINIDAD RESIDENT Mar 23, 2024 21:04 MYA LARSON MD Mar 24, 2024 17:47
[2024-03-23] MEDS ORDERED: DEXTROSE (50%) 50ML SYRG IV PRN (21:45)
[2024-03-23] MEDS ORDERED: ACCU-CHEK COMFORT CURVE STRIP VI SCH (22:00)
[2024-03-23] MEDS ORDERED: InsuLIN REG 1unit/0.01ml Soln (100units/ml) SC SCH (22:00)
--- NOTE | 2024-03-23 23:37 | DVH ---
US KIDNEY HISTORY: UTI, s/p bilateral stents COMPARISON: US KIDNEY on DOS: 12/09/23, US KIDNEY on DOS: 10/28/23, US KIDNEY on DOS: 10/27/23 TECHNIQUE: Transverse and longitudinal grayscale and color Doppler images were obtained of the kidney s and bladder. FINDINGS: Right kidney: Size: 16.4 cm There is mild hydronephrosis. No evidence of renal stones. Cortical thickness and echogenicity are no rmal. Left kidney: Size: 15 cm There is mild hydronephrosis and renal stones. Normal cortical thickness and echogenicity. Bladder: Slightly distended. Prevoid volume of 89 mL. No postvoid images were available. Other: None. IMPRESSION: Mild bilateral hydronephrosis. Left kidney midpole echogenic structure which may represent a renal st one measuring 6 mm.
[2024-03-24] VITALS (7 sets, daily range): BP systolic 101–132; BP diastolic 46–66; PULSE 88–110; RESP 16–20; TEMP 97.5–98.1; O2SAT 93–100
[2024-03-24] MEDS: METOPROLOL TARTRATE 25 MG TAB PO SCH (02:32)
[2024-03-24] MEDS: INSULIN LANTUS (GLARGINE) 1 /0.01ml (100units/ml) SC SCH (04:10)
[2024-03-24] MEDS: cefTRIAXone 1GM/50ML D5W 50 ML IV ONE (04:12)
[2024-03-24 05:05] LABS: Eosinophils # (auto) 0.4 10 ^3/uL (0-0.8)
[2024-03-24 05:07] LABS: Basophils # (auto) 0.1 10 ^3/uL (0-0.2); Basophils % (auto) 0.7 % (0.0-2.0); Eosinophils % (auto) 2.8 % (0.0-7.0); Hematocrit 29.1 % (41.0-53.0); Hemoglobin 9.1 g/dL (13.5-17.5); Lymphocytes # (auto) 1.3 10 ^3/uL (0.4-5.4); Lymphocytes % (auto) 9.9 % (10.0-50.0); Mean Corpuscular Hemoglobin 24.5 pg (28.0-32.0); Mean Corpuscular Hgb Conc. 31.2 g/dL (32.0-36.0); Mean Corpuscular Volume 78.5 fL (80.0-100.0); Monocytes % (auto) 7.7 % (0.0-12.0); Neutrophils # (auto) 10.7 10 ^3/uL (1.6-8.6); Neutrophils % (auto) 78.9 % (37.0-80.0); Platelet Count (auto) 324 10^3/uL (140-450); Red Blood Cells 3.71 10^6/uL (4.5-5.90); Red Cell Distribution Width 17.5 % (11.8-14.3); White Blood Cell 13.5 10^3/uL (4.4-10.8)
[2024-03-24 05:16] LABS: Chloride 107 mmol/L (98-107)
[2024-03-24 05:17] LABS: Anion Gap 10 (5-15); Calcium 10.1 mg/dL (8.7-10.4)
[2024-03-24 05:22] LABS: BUN/Creatinine Ratio 14.3 (10.0-20.0)
[2024-03-24 05:23] LABS: Blood Urea Nitrogen 53 mg/dL (9-23); Carbon Dioxide 17 mmol/L (20-31); Glucose 232 mg/dL (74-106); Potassium 5.4 mmol/L (3.5-5.1); Sodium 134 mmol/L (136-145)
[2024-03-24] MEDS: InsuLIN REG 1unit/0.01ml Soln (100units/ml) SC SCH (06:36)
[2024-03-24] MEDS: ACCU-CHEK COMFORT CURVE STRIP VI SCH (06:36)
[2024-03-24] MEDS ORDERED: InsuLIN REG 1unit/0.01ml Soln (100units/ml) SC SCH (07:00)
[2024-03-24] MEDS: LEVOTHYROXINE SODIUM 50 MCG TAB PO SCH (07:00)
[2024-03-24] MEDS: ALBUTEROL SULF 2.5 MG/0.5ML(0.5%) NEB SOLN NEB ONE (07:38)
[2024-03-24] MEDS: SODIUM CHLORIDE 0.9% 1,000 ML IV SCH (07:39)
[2024-03-24 07:45] LABS: INR 1.34 (0.9-1.15); Partial Thromboplastin Time 33.8 SEC (24.5-34.5); Prothrombin Time 13.9 sec (9.3-11.8)
[2024-03-24] MEDS: SODIUM ZIRCONIUM CYCL 10 GM PAK PO ONE (07:51)
[2024-03-24] MEDS: SODIUM BICARB 8.4% 50Meq/50ml SYR INJ IV ONE (07:51)
[2024-03-24] MEDS: FUROSEMIDE 20 MG/2 ML VIAL IV ONE (08:04)
--- NOTE | 2024-03-24 09:05 | DVH ---
CHEST RADIOGRAPH Indication: chest pain Technique: Single frontal view of the chest was obtained Comparison: XY CHEST PORTABLE on DOS: 12/08/23, XY CHEST XRAY 1 VIEW on DOS: 10/30/23, XY CHEST XRAY 1 VIEW on DOS: 10/28/23, XY CHEST XRAY 1 VIEW on DOS: 10/27/23 FINDINGS: Lines and Tubes: None Lungs: No focal consolidation. Pleura: No effusion. No pneumothorax. Cardiomediastinal contours: Unremarkable Bones: Median sternotomy IMPRESSION: No acute cardiopulmonary disease.
--- NOTE | 2024-03-24 09:18 | DVHINCON2 ---
Date of service: Mar 24, 2024 Referring Physician Hospitalist Reason for Consultation Bilateral indwelling ureteral stents History of Present Illness Patient with a history of bilateral ureteral calculi status post stents placement in October of 2023 with subsequent ureteroscopic laser on 12/14/2023. He has indwelling ureteral stents since then. He is admitted for abnormal laboratory data including hyperkalemia. He was placed on potassium citrate for alkalinization of his uric acid stones but will need to be discontinued for now. 68y M who presents to the ED for chief complaint of abnormal labs. Pt states he had labs drawn on Thursday and states he received call today telling him to come to local ED after his labs showed elevated potassium level. Pt in the ED, denies chest pain, shortness of breath, headache, dizziness, nausea, or vomiting. Pt otherwise states he is on blood thinner warfarin for history of blood clots. Carlos rinaldi also endorses significant dysuria but no hematuria and states that his urine appears cloudy. No history of prostatitis or pain with defecation. Pt otherwise denies any other symptoms at this time. Primary Care Provider: DINORA Reviewed Notes: Nurses Notes Allergies: Coded Allergies: NO KNOWN ALLERGIES (Unverified , 11/17/10) Home Meds Reported Medications Lisinopril (Lisinopril) 5 Mg Tab, 1 TAB PO DAILY for 90 Days, #90 12/10/23 Levothyroxine Sodium (Levothyroxine Sodium) 175 Mcg Tab, 1 TAB PO DAILY for 90 Days, #90 12/10/23 Tamsulosin Hcl (Tamsulosin Hcl) 0.4 Mg Cap, 1 CAP PO DAILY, #30 CAP 5 Refills 12/08/23 Digoxin (Digoxin) 125 Mcg Tab, 125 MCG PO DAILY, TAB 10/28/23 Insulin Glargine (Lantus Solostar) 100 Unit/Ml Inj, 100 UNIT SC DAILY, INJ 10/28/23 Warfarin Sodium (Warfarin Sodium) 1 Mg Tab, PO, TAB 10/28/23 Aspirin (Aspirin) 325 Mg Tab, 81 MG PO DAILY for 30 Days, MG 10/28/23 Glipizide (Glipizide) 5 Mg Tab, 5 MG PO BID for 30 Days, MG 10/28/23 Metoprolol Tartrate (Metoprolol Tartrate) 25 Mg Tab, 25 MG PO BID, TAB 10/28/23 Metformin Hydrochloride (Metformin Hcl) 500 Mg Tab, 1000 MG PO BID for 30 Days, MG 10/28/23 Rosuvastatin Calcium (Crestor) 40 Mg Tab, 40 MG PO DAILY, TAB 10/28/23 Information Source: Patient Past Medical History CHF, DM, ESRD, High Lipids, Kidney Stones, Thyroid, UTI'S Past Surgical History CABG Family History: Patient reports no known family medical history. Allergies: Coded Allergies: NO KNOWN ALLERGIES (Unverified , 11/17/10) Home Meds Reported Medications Lisinopril (Lisinopril) 5 Mg Tab, 1 TAB PO DAILY for 90 Days, #90 12/10/23 Levothyroxine Sodium (Levothyroxine Sodium) 175 Mcg Tab, 1 TAB PO DAILY for 90 Days, #90 12/10/23 Tamsulosin Hcl (Tamsulosin Hcl) 0.4 Mg Cap, 1 CAP PO DAILY, #30 CAP 5 Refills 12/08/23 Digoxin (Digoxin) 125 Mcg Tab, 125 MCG PO DAILY, TAB 10/28/23 Insulin Glargine (Lantus Solostar) 100 Unit/Ml Inj, 100 UNIT SC DAILY, INJ 10/28/23 Warfarin Sodium (Warfarin Sodium) 1 Mg Tab, PO, TAB 10/28/23 Aspirin (Aspirin) 325 Mg Tab, 81 MG PO DAILY for 30 Days, MG 10/28/23 Glipizide (Glipizide) 5 Mg Tab, 5 MG PO BID for 30 Days, MG 10/28/23 Metoprolol Tartrate (Metoprolol Tartrate) 25 Mg Tab, 25 MG PO BID, TAB 10/28/23 Metformin Hydrochloride (Metformin Hcl) 500 Mg Tab, 1000 MG PO BID for 30 Days, MG 10/28/23 Rosuvastatin Calcium (Crestor) 40 Mg Tab, 40 MG PO DAILY, TAB 10/28/23 Current Medications Current Medications Medications (Trade) Dose Ordered Sig/Jazz Route PRN Reason Start Time Stop Time Status Last Admin Ceftriaxone Sodium 50 ml @ 100 mls/hr DAILY IV 03/24/24 10:00 Lisinopril (Zestril Tablet) 5 mg DAILY PO 03/24/24 10:00 Metoprolol Tartrate (Lopressor Tablet) 25 mg BID PO 03/23/24 22:00 Tamsulosin HCl (Flomax) 0.4 mg HS PO 03/24/24 22:00 Warfarin Sodium (Coumadin) 1 mg DAILY PO 03/24/24 10:00 03/24/24 07:21 DC Patient Own Medication 81 mg DAILY PO 03/24/24 10:00 03/23/24 22:36 DC Patient Own Medication 1 tab DAILY PO 03/24/24 10:00 03/23/24 22:36 DC Patient Own Medication 40 mg DAILY PO 03/24/24 10:00 03/23/24 22:37 DC Diagnostic Test (Pha) (Accu-Chek Comfort Curve T) 1 strip ACHS 03/23/24 22:00 03/24/24 00:50 DC Insulin Human Regular (InsuLIN R) HS SC 03/23/24 22:00 03/24/24 00:50 DC Insulin Human Regular (InsuLIN R) AC SC 03/24/24 07:00 03/24/24 00:42 DC Dextrose 50 ml UD PRN IV Blood Sugar LESS THAN 60 03/23/24 21:45 Insulin Glargine (Lantus) 30 units BID@0700,2200 SC 03/23/24 22:00 03/24/24 06:36 Aspirin 81 mg DAILY PO 03/24/24 10:00 Levothyroxine Sodium (Synthroid Tablet) 175 mcg DAILY PO 03/24/24 10:00 03/23/24 22:33 DC Levothyroxine Sodium (Synthroid Tablet) 175 mcg DAILY@0700 PO 03/24/24 07:00 Atorvastatin Calcium (Lipitor) 80 mg HS PO 03/24/24 22:00 Diagnostic Test (Pha) (Accu-Chek Comfort Curve T) 1 strip ACHS 03/24/24 07:00 03/24/24 06:36 Insulin Human Regular (InsuLIN R) ACHS SC 03/24/24 07:00 03/24/24 06:36 Enoxaparin Sodium (Lovenox) 140 mg DAILY SC 03/24/24 10:00 Sodium Chloride 1,000 ml @ 100 mls/hr Q10H IV 03/24/24 07:30 03/24/24 07:39 Zirconium Oxide (Lokelma) 10 gm TID PO 03/24/24 14:00 03/26/24 06:01 Review of Systems ls, diaphoresis, fatigue, fever, malaise, sweats, weakness, others EENTM: denies: blurred vision, double vision, ear bleeding, ear discharge, ear drainage, ear pain, ear ringing, eye pain, eye redness, hearing loss, mouth pain, mouth swelling, nasal discharge, nose bleeding, nose congestion, nose pain, photophobia, tearing, throat pain, throat swelling, voice changes, others Respiratory: denies: cough, hemoptysis, orthopnea, SOB at rest, shortness of breath, SOB with excertion, stridor, wheezing, others Cardiovascular: denies: chest pain, dizzy spells, diaphoresis, Dyspnea on ex ertion, edema, irregular heart beat, left arm pain, lightheadedness, palpitations, PND, syncope, others Gastrointestinal: denies: abdomen distended, abdominal pain, blood streaked bowels, constipated, diarrhea, dysphagia, difficulty swallowing, hematemesis, melena, nausea, poor appetite, poor fluid intake, rectal bleeding, rectal pain, vomiting, others Genitourinary: denies: burning, dysuria, flank pain, frequency, hematuria, incontinence, penile discharge, penile sore, pain, testicle pain, testicle swelling, urgency, others Neurological: denies: dizziness, fainting, headache, left sided numbness, left sided weakness, numbness, paresthesia, pre-existing deficit, right sided numbness, right sided weakness, seizure, speech problems, tingling, tremors, weakness, others Musculoskeletal: denies: back pain, gout, joint pain, joint swelling, muscle pain, muscle stiffness, neck pain, others Integumetry: denies: bruises, change in color, change in hair/nails, dryness, laceration, lesions, lumps, rash, wounds, others Allergic/Immunocompromised: denies: Difficulty Healing, Frequent Infections, Hives, Itching, others Hematologic/Lymphatic: denies: anemia, blood clots, easy bleeding, easy bruising, swollen glands, others Endocrine: denies: excessive hunger, excessive sweating, excessive thirst, excessive urination, flushing, intolerance to cold, intolerance to heat, unexplained weight gain, unexplained weight loss, others Psychiatric: denies: anxiety, bipolar disorder, depression, hopeless, panic disorder, schizophrenia, sleepless, suicidal, others All Other Systems: Reviewed and Negative Vital Signs Vital Signs Date Time Temp Pulse Resp B/P (MAP) Pulse Ox O2 Delivery O2 Flow Rate FiO2 03/24/24 08:45 97.6 110 19 118/46 (70) 97 97.6 03/24/24 07:38 Room Air* 0 21 Physical Exam General Appearance: No Apparent Distress, Normal HEENT: Normal ENT Inspection, Pharynx Normal, TMs Normal Neck: Full Range of Motion, Non-Tender, Normal, Normal Inspection Respiratory: Chest Non-Tender, Lungs Clear, No Accessory Muscle Use, No Respiratory Distress, Normal Breath Sounds Cardiovascular: No Edema, No JVD, No Murmur, No Gallop, Normal Peripheral Pulses, Regular Rate/Rhythm Breast Exam: Deferred Gastrointestinal: No Organomegaly, Normal Bowel Sounds, Soft, Other (No CVAT bilaterally, positive tenderness to palpation in the suprapubic area) Genitalia: Deferred Pelvic: Deferred Rectal: Deferred Extremities: No calf tenderness, Normal capillary refill, Normal inspection, Normal range of motion, Non-tender, No pedal edema Musculoskeletal : Apperance: Normal Neurologic: Alert, chocolate molder II-XII nml as Tested, No Motor Deficits, Normal Affect, Normal Mood, No Sensory Deficits Cerebellar Function: NOT DONE Reflexes: NOT DONE Skin: Dry, Normal Color, Warm Lymphatic: No Adenopathy Labs/Diagnostic Data Labs Test 03/24/24 06:17 03/24/24 04:47 03/23/24 19:21 03/23/24 15:19 Range/Units POC Glucose 217 H 70-106 mg/dl White Blood Count 13.5 H 4.4-10.8 10^3/uL Red Blood Count 3.71 L 4.5-5.90 10^6/uL Hemoglobin 9.1 L 13.5-17.5 g/dL Hematocrit 29.1 L 41.0-53.0 % Mean Corpuscular Volume 78.5 L 80.0-100.0 fL Mean Corpuscular Hemoglobin 24.5 L 28.0-32.0 pg Mean Corpuscular Hemoglobin Concent 31.2 L 32.0-36.0 g/dL Red Cell Distribution Width 17.5 H 11.8-14.3 % Platelet Count 324 140-450 10^3/uL Mean Platelet Volume 6.5 L 6.9-10.8 fL Neutrophils (%) (Auto) 78.9 37.0-80.0 % Lymphocytes (%) (Auto) 9.9 L 10.0-50.0 % Monocytes (%) (Auto) 7.7 0.0-12.0 % Eosinophils (%) (Auto) 2.8 0.0-7.0 % Basophils (%) (Auto) 0.7 0.0-2.0 % Neutrophils # (Auto) 10.7 H 1.6-8.6 10 ^3/uL Lymphocytes # (Auto) 1.3 0.4-5.4 10 ^3/uL Monocytes # (Auto) 1.0 0-1.3 10 ^3/uL Eosinophils # (Auto) 0.4 0-0.8 10 ^3/uL Basophils # (Auto) 0.1 0-0.2 10 ^3/uL Nucleated Red Blood Cells 0.0 % Prothrombin Time 13.9 H 9.3-11.8 sec Prothrombin Time INR 1.34 H 0.9-1.15 Activated Partial Thromboplast Time 33.8 24.5-34.5 SEC Sodium Level 134 L 136-145 mmol/L Potassium Level 5.4 H 3.5-5.1 mmol/L Chloride Level 107 98-107 mmol/L Carbon Dioxide Level 17 L 20-31 mmol/L Anion Gap 10 5-15 Blood Urea Nitrogen 53 H 9-23 mg/dL Creatinine 3.70 H 0.700-1.30 mg/dL Glomerular Filtration Rate Calc 17 >90 mL/min BUN/Creatinine Ratio 14.3 10.0-20.0 Serum Glucose 232 H 74-106 mg/dL Calcium Level 10.1 8.7-10.4 mg/dL Lactic Acid Level 1.3 0.4-2.0 mmol/L B-Type Natriuretic Peptide 53.66 0-100 pg/mL Test 03/23/24 14:49 Range/Units Urine Color Brown H Yellow Urine Clarity Ex.turbid Clear Urine pH 6.0 5.0-9.0 Urine Specific [place] 1.010 1.001-1.035 Urine Protein 2+ H Negative Urine Ketones Negative Negative Urine Blood 3+ H Negative /uL Urine Nitrite Negative Negative Urine Bilirubin Negative Negative Urine Urobilinogen Normal Negative mg/dL Urine Leukocyte Esterase 3+ Negative /uL Urine RBC 371 0 - 3 /hpf Urine WBC 4424 0 - 3 /hpf Urine WBC Clumps Present None Seen /hpf Urine Squamous Epithelial Cells None seen <5 /hpf Urine Bacteria None seen None Seen /hpf Urine Glucose 1+ H Normal mg/dL Assessment Bilateral indwelling ureteral stents Possible residual renal lithiasis Plan/Recommendation Cystoscopy with stents removal, possible replacement CT scan abdomen pelvis noncontrast study Plan discussed with: Patient, Other BRUNO FARIAS MD Mar 24, 2024 09:18
--- NOTE | 2024-03-24 09:39 | DVH ---
Exam: CT CT AB PEL WO CON-NO ORAL OR IV History: kidney stones Comparison Study: CT scan of the abdomen pelvis dated 12/09/2023. Technique: Multidetector spiral CT of the abdomen and pelvis was performed from lung bases to pubic s ymphysis. Imaging was performed without intravenous contrast. Coronal and sagittal multiplanar refor mats were obtained from the axial data set by the technologist. Radiation Dose : 1. Abdomen/Pelvis: CTDIvol 25.24 mGy, DLP 1406.04 mGy*cm. Findings: Evaluation of vasculature and solid organs is limited due to lack of intravenous contrast use. Lung Bases: Lung bases are clear. Visualized portions of the heart and pericardium are unremarkable. Liver: The liver is normal in size. No focal lesions. Gallbladder and Biliary Tree: The gallbladder is contracted. No intrahepatic or extrahepatic biliary ductal dilatation. Spleen: Unremarkable Pancreas: The pancreas is grossly unremarkable. Adrenal Glands: Unremarkable Kidneys: Bilateral double-J nephroureteral stents are noted with the tips coiled in the bilateral tyesha al pelves and urinary bladder. There are nonobstructive right intrarenal calculi measuring up to 5 m m similar to the prior study. No left intrarenal calculi. Mild bilateral hydronephrosis is stable. Nonspecific bilateral perinephric fat stranding. GI tract: The stomach is grossly normal in appearance. No evidence of small bowel wall thickening or abnormal dilatation to suggest bowel obstruction. Sigmoid diverticulosis without acute diverticuliti s. The appendix is visualized and is normal. Peritoneum/mesentery/retroperitoneum. No evidence of free intraperitoneal air. No ascites. No evidenc e of suspicious lymphadenopathy. Abdominal Wall: Unremarkable. Vasculature: The visualized abdominal aorta is normal in size and caliber. Evaluation of abdominal a nd pelvic vessels is limited due to lack of intravenous contrast. There are atherosclerotic calcifica tions in the aorta. Urinary Bladder: Grossly unremarkable for degree of distention. Pelvic Organs: Unremarkable Musculoskeletal: No aggressive focal bony lesions, acute fractures or dislocation. Lower lumbar spond ylosis. IMPRESSION: 1. Bilateral double-J nephroureteral stents in appropriate position. Mild bilateral hydronephrosis. Redemonstrated nonobstructing right intrarenal calculi measuring up to 4 mm similar to the prior stud y. 2. Colonic diverticulosis without acute diverticulitis.
[2024-03-24] MEDS ORDERED: PATIENTS OWN MEDICATION (Levothyroxine Sodium 1 TAB) PO SCH (10:00)
[2024-03-24] MEDS ORDERED: WARFARIN SODIUM 1 MG TAB PO SCH (10:00)
[2024-03-24] MEDS ORDERED: LEVOTHYROXINE SODIUM 50 MCG TAB PO SCH (10:00)
[2024-03-24] MEDS: ASPirin 81 mg TAB PO SCH (10:00)
[2024-03-24] MEDS: cefTRIAXone 1GM/50ML D5W 50 ML IV SCH (10:00)
[2024-03-24] MEDS: LISINOPRIL 5 MG TAB PO SCH (10:00)
[2024-03-24] MEDS: ENOXAPARIN SOD 150 MG/1 ML SYRINGE SC SCH (10:00)
[2024-03-24] MEDS ORDERED: PATIENTS OWN MEDICATION (Aspirin 81 MG) PO SCH (10:00)
[2024-03-24] MEDS ORDERED: PATIENTS OWN MEDICATION (Rosuvastatin Calcium (Crestor) 40 MG) PO SCH (10:00)
[2024-03-24] MEDS ORDERED: LIDOCAINE 1% INJ PF 5ML AMP ONE (10:48)
[2024-03-24] MEDS ORDERED: KETOROLAC TROMETH 30 MG/ML 1ML VIAL ONE (10:48)
[2024-03-24] MEDS ORDERED: DexAMETHasone SOD PHOS 10MG/1ML VIAL INJ ONE (10:48)
[2024-03-24] MEDS ORDERED: ONDANSETRON HCL 4 MG/2 ML VIAL ONE (10:48)
[2024-03-24] MEDS ORDERED: PROPOFOL 10 MG/ML 20 ML IV ONE ×2 (10:49→11:11)
[2024-03-24] MEDS ORDERED: GLYCOPYRROLATE 0.2 MG/ML 1ML VIAL ONE (10:49)
--- NOTE | 2024-03-24 11:24 | DVHOP2 ---
Operative Report - 2 Report Details Date: 03/24/24 Preop Diagnosis: Bilateral ureteral stents Right nephrolithiasis, uric acid type Postop Diagnosis: Urethral stricture disease/meatal stenosis Surgeon: Bruno Farias Anesthesiologist: Lenin Valenzuela CRNA Anesthesia: General Consent: The patient was informed of the risks and benefits of the procedure. These include but are not limited to complications of anesthesia, postoperative infection, incomplete relief of symptoms, recurrence of symptoms, damage to blood vessels, nerves and tendons, deep venous thrombosis, pulmonary embolism and possible need for repeat surgery in the future. Indications for Surgery: Patient has an indwelling ureteral stents since December 14, 2023 Name of Procedure Performed Cystoscopy with bilateral ureteral stents removal Urethral dilation Thornton insertion Procedure Details Procedure Details: Patient was taken to the operating room and underwent general anesthesia. He was placed in lithotomy position with the area of the genitalia prepped and draped in usual sterile manner. Due to the meatal stenosis, then Buren sounds were used to dilate the narrowing to 24 Cypriot. Next 21 Cypriot rigid cystoscope was used to access the bladder and the stents were identified and removed. Upon removing the stents some yellow-colored ureteral calculi are seen consistent with uric acid stones. Due to the presence of the urethral stenosis requiring dilation, Thornton catheter was inserted. Patient is awakened and taken to [facility] room in stable condition Specimen: Ureteral calculi Condition Fair Disposition BRUNO FARIAS MD Mar 24, 2024 11:24
[2024-03-24] MEDS: HYDROmorphone HCL 2 MG/ML VL/or syr IV PRN (11:43)
[2024-03-24] MEDS ORDERED: fentaNYL CITRATE 100 MCG/2 ML VL IV PRN (11:45)
[2024-03-24] MEDS ORDERED: hydrALAZINE HCL 20 MG/ML VL IV PRN (11:45)
[2024-03-24] MEDS ORDERED: FLUMAZENIL 0.1 MG/ML INJ 10ML MDV IV PRN (11:45)
[2024-03-24] MEDS ORDERED: ePHEDrine SULFATE 50 MG/ML AMP IV PRN (11:45)
[2024-03-24] MEDS ORDERED: ONDANSETRON HCL 4 MG/2 ML VIAL IV PRN (11:45)
[2024-03-24] MEDS ORDERED: NALOXONE HCL 0.4 MG/ML VIAL IV PRN (11:45)
[2024-03-24] MEDS: oxyCODONE HCL 5MG TAB PO ONE (11:58)
[2024-03-24] MEDS: CIPROFLOXACIN 400MG/200ML 200 ML IV ONE (11:58)
[2024-03-24] MEDS: IOHEXOL 300 MG/ML 100ML BOTTLE IJ ONE ×2 (11:58)
[2024-03-24] MEDS: HYDROmorphone HCL 2 MG/ML VL/or syr ONE (11:59)
--- NOTE | 2024-03-24 13:41 | DVH ---
C-ARM FLUOROSCOPY: PROCEDURE: stent removal FLUOROSCOPY TIME: 30.2sec DAP: 13.5 mgy FINDINGS: Spot intraoperative C arm radiographs demonstrating stent removal. IMPRESSION: Please refer to surgical report for detailed findings.
[2024-03-24] MEDS: SODIUM ZIRCONIUM CYCL 10 GM PAK PO SCH (14:16)
--- NOTE | 2024-03-24 17:34 | DVHPN2 ---
Subjective s/p Stent removal by Dr. Little. Changes from previous H/P or p: No Changes Eyes: No Pain, No Vision change, No Conjunctivae inflammation, No Eyelid inflammation, No Other, No Redness ENT: No Ear pain, No Ear discharge, No Nose pain, No Nose discharge, No Nose congestion, No Mouth pain, No Mouth swelling, No Throat pain, No Throat swelling, No Other Cardiovascular: No Chest Pain, No Palpitations, No Orthopnea, No Paroxysmal Noc. Dyspnea, No Edema, No Lt Headedness, No Other Respiratory: No Cough, No Dry, No Shortness of breath, No SOB with excertion, No Wheezing, No Hemoptysis, No Pleuritic Pain, No Sputum, No Other Gastrointestinal: No Nausea, No Vomiting, No Abdominal Pain, No Diarrhea, No Constipation, No Melena, No Hematochezia, No Other Genitourinary: Dysuria, Frequency; No Incontinence, No Hematuria, No Retention, No Other Musculoskeletal: No other, No neck pain, No shoulder pain, No arm pain, No back pain, No hand pain, No leg pain, No foot pain Skin: No Rash, No Lesions, No Jaundice, No Bruising, No Other Objective Vitals Vital Signs Date Time Temp Pulse Resp B/P (MAP) Pulse Ox O2 Delivery O2 Flow Rate FiO2 03/24/24 16:35 97.9 91 16 101/55 (70) 93 97.9 03/24/24 11:26 Room Air 0 03/24/24 11:26 100 Intake/Output Intake and Output 03/24/24 07:00 Intake Total 50 ml Balance 50 ml Intake IV Total 50 ml # Voids 3 General Appearance: Alert, Oriented X3, Cooperative, No acute distress Lungs: Clear to auscultation Cardiovascular: Regular rate, Normal S1, Normal S2 Abdomen: Normal bowel sounds, Soft Psych/Mental Status: Mental status NL Medications Current Medications Medications Dose Ordered Sig/Jazz Route Start Time Stop Time Status Last Admin Dose Admin Ceftriaxone Sodium 50 ml @ 100 mls/hr DAILY IV 03/24/24 10:00 Lisinopril 5 mg DAILY PO 03/24/24 10:00 Metoprolol Tartrate 25 mg BID PO 03/23/24 22:00 Tamsulosin HCl 0.4 mg HS PO 03/24/24 22:00 Dextrose 50 ml UD PRN IV 03/23/24 21:45 Insulin Glargine 30 units BID@0700,2200 SC 03/23/24 22:00 03/24/24 06:36 30 UNITS Aspirin 81 mg DAILY PO 03/24/24 10:00 Levothyroxine Sodium 175 mcg DAILY@0700 PO 03/24/24 07:00 Atorvastatin Calcium 80 mg HS PO 03/24/24 22:00 Diagnostic Test (Pha) 1 strip ACHS 03/24/24 07:00 03/24/24 12:00 1 STRIP Insulin Human Regular ACHS SC 03/24/24 07:00 03/24/24 12:30 8 UNITS Enoxaparin Sodium 140 mg DAILY SC 03/24/24 10:00 Sodium Chloride 1,000 ml @ 100 mls/hr Q10H IV 03/24/24 07:30 03/24/24 07:39 100 MLS/HR Zirconium Oxide 10 gm TID PO 03/24/24 14:00 03/26/24 06:01 03/24/24 14:16 10 GM Laboratory Results Laboratory Tests 03/24/24 04:47 Chemistry Test 03/24/24 04:47 Calcium Level 10.1 mg/dL (8.7-10.4) Coagulation Test 03/24/24 04:47 Prothrombin Time 13.9 sec (9.3-11.8) H Prothrombin Time INR 1.34 (0.9-1.15) H Activated Partial Thromboplast Time 33.8 SEC (24.5-34.5) Urinalysis Test 03/23/24 14:49 Urine Color Brown (Yellow) H Urine Clarity Ex.turbid (Clear) Urine pH 6.0 (5.0-9.0) Urine Specific [place] 1.010 (1.001-1.035) Urine Protein 2+ (Negative) H Urine Ketones Negative (Negative) Urine Blood 3+ /uL (Negative) H Urine Nitrite Negative (Negative) Urine Bilirubin Negative (Negative) Urine Urobilinogen Normal mg/dL (Negative) Urine Leukocyte Esterase 3+ /uL (Negative) Urine RBC 371 /hpf (0 - 3) Urine WBC 4424 /hpf (0 - 3) Urine WBC Clumps Present /hpf (None Seen) Urine Squamous Epithelial Cells None seen /hpf (<5) Urine Bacteria None seen /hpf (None Seen) Urine Glucose 1+ mg/dL (Normal) H Assessment/Plan Assessment/Plan # Acute complicated cystitis # S/P right ureterolithotripsy with bilateral ureteral stents secondary to bilateral kidney stones - U/A is consistent with pyuria without bacteriuria - Ultrasound of the kidney revealed mild bilateral hydronephrosis and Left kidney midpole echogenic structure which may represent a renal stone measuring 6 mm - Ordered urine bacterial culture - IV ceftriaxone 1 g daily - Consulted urology s/p Stent removal # Anemia - Check FOBT # Type 2 diabetes mellitus, HbA1C 8.1% on 03/21/24 - Lantus 30 unit b.i.d and mild sliding scale of insulin # JOSEF on Stage 4 CKD - Strict I/O - Avoid nephrotoxic medication - Consulted Nephrology # History of CAD, s/p CABG - Aspirin 81 mg p.o. daily atorvastatin 80 mg at HS # Hypertensive heart disease - Metoprolol tartrate 25 mg p.o. b.i.d. and lisinopril 5 mg daily - Echo on 12/07 demonstrated EF 55%. # Chronic hypothyroidism - Levothyroxine 175 mcg at q.a.m. # History of mechanical heart valve - Lovenox Subq # PUD prophylaxis - Pepcid 20 mg p.o. daily # DVT prophylaxis - Lovenox Subq Goal of care discussed with the patient for more than 20 minutes full code Plan discussed with: Other My Orders Orders - MYA BRANHAM MD Procedure Category Date Status Time Stool Occult Blood LAB 03/24/24 Logged 17:26 Lactulose Oral PHA 03/24/24 Logged 17:30 Date of Service: Mar 24, 2024 Billing Provider: MYA BRANHAM MD Common Visit Codes: [id number] INP/OBS CARE(HIGH) MYA BRANHAM MD Mar 24, 2024 17:34
[2024-03-24] MEDS: LACTULOSE 20Gm/30ML SOLN PO ONE (17:46)
[2024-03-24] MEDS: TAMSULOSIN HYDROCHLORIDE 0.4 MG CAP PO SCH (22:11)
[2024-03-24] MEDS: ATORVASTATIN 20 MG TAB PO SCH (22:12)
[2024-03-25] VITALS (7 sets, daily range): BP systolic 116–132; BP diastolic 52–81; PULSE 68–96; RESP 16–20; TEMP 97.6–98.1; O2SAT 89–96
[2024-03-25 08:42] LABS: Basophils # (auto) 0 10 ^3/uL (0-0.2); Basophils % (auto) 0.1 % (0.0-2.0); Eosinophils # (auto) 0 10 ^3/uL (0-0.8); Hematocrit 25.8 % (41.0-53.0); Hemoglobin 8.1 g/dL (13.5-17.5); Lymphocytes # (auto) 0.6 10 ^3/uL (0.4-5.4); Lymphocytes % (auto) 4.2 % (10.0-50.0); Mean Corpuscular Hemoglobin 24.1 pg (28.0-32.0); Mean Corpuscular Hgb Conc. 31.5 g/dL (32.0-36.0); Mean Corpuscular Volume 76.6 fL (80.0-100.0); Monocytes # (auto) 0.7 10 ^3/uL (0-1.3); Monocytes % (auto) 4.4 % (0.0-12.0); Neutrophils # (auto) 13.6 10 ^3/uL (1.6-8.6); Neutrophils % (auto) 91.3 % (37.0-80.0); Platelet Count (auto) 283 10^3/uL (140-450); Red Blood Cells 3.37 10^6/uL (4.5-5.90); Red Cell Distribution Width 16.9 % (11.8-14.3); White Blood Cell 14.9 10^3/uL (4.4-10.8)
[2024-03-25 08:43] LABS: Chloride 103 mmol/L (98-107)
[2024-03-25 08:44] LABS: Anion Gap 8 (5-15); Calcium 9.4 mg/dL (8.7-10.4)
[2024-03-25 08:46] LABS: Carbon Dioxide 20 mmol/L (20-31); Potassium 5.4 mmol/L (3.5-5.1); Sodium 131 mmol/L (136-145)
[2024-03-25 08:49] LABS: BUN/Creatinine Ratio 18.6 (10.0-20.0)
[2024-03-25 09:05] LABS: Blood Urea Nitrogen 56 mg/dL (9-23)
[2024-03-25 09:07] LABS: Glucose 407 mg/dL (74-106)
[2024-03-25] MEDS: LACTULOSE 20Gm/30ML SOLN PO ONE (10:25)
[2024-03-25] MEDS: INSULIN LISPRO (HUMAN) 100 UNITS/ML ML SC ONE (10:26)
[2024-03-25 11:46] LABS: Urine Bacteria None Seen /hpf (None Seen); Urine WBC None Seen /hpf (0 - 3)
[2024-03-25 12:32] LABS: Creatinine, Urine 54.32 mg/dL (30.0-125.0)
[2024-03-25 12:39] LABS: Urine Blood 3+ /uL (Negative); Urine Protein, UAD 2+ (Negative); Urine Specific Gravity 1.011 (1.001-1.035); Urine Squamous Epithelial Cell None Seen /hpf (<5); Urine Urobilinogen Normal (Negative); Urine pH 5.5 (5.0-9.0)
[2024-03-25 12:44] LABS: Urine Clarity Cloudy (Clear); Urine Color Red (Yellow)
[2024-03-25] MEDS ORDERED: INSULIN LISPRO (HUMAN) 100 UNITS/ML ML SC SCH (14:00)
--- NOTE | 2024-03-25 14:57 | DVHPN2 ---
Subjective Seen and examined at bedside. H&H drop. DC Lovenox and ASA. Get FOBT. Encourage ambulation. Changes from previous H/P or p: No Changes Eyes: No Pain, No Vision change, No Conjunctivae inflammation, No Eyelid inflammation, No Other, No Redness ENT: No Ear pain, No Ear discharge, No Nose pain, No Nose discharge, No Nose congestion, No Mouth pain, No Mouth swelling, No Throat pain, No Throat swelling, No Other Cardiovascular: No Chest Pain, No Palpitations, No Orthopnea, No Paroxysmal Noc. Dyspnea, No Edema, No Lt Headedness, No Other Respiratory: No Cough, No Dry, No Shortness of breath, No SOB with excertion, No Wheezing, No Hemoptysis, No Pleuritic Pain, No Sputum, No Other Gastrointestinal: No Nausea, No Vomiting, No Abdominal Pain, No Diarrhea, No Constipation, No Melena, No Hematochezia, No Other Genitourinary: No Dysuria, No Frequency, No Incontinence, No Hematuria, No Retention, No Other Musculoskeletal: No other, No neck pain, No shoulder pain, No arm pain, No back pain, No hand pain, No leg pain, No foot pain Skin: No Rash, No Lesions, No Jaundice, No Bruising, No Other Objective Vitals Vital Signs Date Time Temp Pulse Resp B/P (MAP) Pulse Ox O2 Delivery O2 Flow Rate FiO2 03/25/24 13:09 97.6 71 18 129/52 (77) 95 97.6 03/25/24 08:00 Room Air* 0 21 Intake/Output Intake and Output 03/25/24 07:00 Intake Total 1120 ml Output Total 805 ml Balance 315 ml Intake Oral 1020 ml IV Total 100 ml Output Urine Total 805 ml General Appearance: Alert, Oriented X3, Cooperative, No acute distress Lungs: Clear to auscultation Cardiovascular: Regular rate, Normal S1, Normal S2 Abdomen: Normal bowel sounds, Soft Psych/Mental Status: Mental status NL Medications Current Medications Medications Dose Ordered Sig/Jazz Route Start Time Stop Time Status Last Admin Dose Admin Ceftriaxone Sodium 50 ml @ 100 mls/hr DAILY IV 03/24/24 10:00 03/25/24 09:15 100 MLS/HR Lisinopril 5 mg DAILY PO 03/24/24 10:00 03/25/24 09:17 5 MG Metoprolol Tartrate 25 mg BID PO 03/23/24 22:00 03/25/24 09:17 25 MG Tamsulosin HCl 0.4 mg HS PO 03/24/24 22:00 03/24/24 22:11 0.4 MG Dextrose 50 ml UD PRN IV 03/23/24 21:45 Insulin Glargine 30 units BID@0700,2200 SC 03/23/24 22:00 03/25/24 06:15 30 UNITS Levothyroxine Sodium 175 mcg DAILY@0700 PO 03/24/24 07:00 03/25/24 06:11 175 MCG Atorvastatin Calcium 80 mg HS PO 03/24/24 22:00 03/24/24 22:12 80 MG Diagnostic Test (Pha) 1 strip ACHS 03/24/24 07:00 03/25/24 10:25 1 STRIP Insulin Human Regular ACHS SC 03/24/24 07:00 03/25/24 12:05 8 UNITS Sodium Chloride 1,000 ml @ 100 mls/hr Q10H IV 03/24/24 07:30 03/25/24 06:23 100 MLS/HR Zirconium Oxide 10 gm TID PO 03/24/24 14:00 03/26/24 06:01 03/25/24 13:07 10 GM Insulin Human Lispro 15 units TID SC 03/25/24 14:00 Hold Laboratory Results Laboratory Tests 03/25/24 07:57 Chemistry Test 03/25/24 07:57 Calcium Level 9.4 mg/dL (8.7-10.4) Urinalysis Test 03/23/24 14:49 03/25/24 11:00 Urine WBC Clumps Present /hpf (None Seen) Urine Color Red (Yellow) H Urine Clarity Cloudy (Clear) H Urine pH 5.5 (5.0-9.0) Urine Specific [place] 1.011 (1.001-1.035) Urine Protein 2+ (Negative) H Urine Ketones Negative (Negative) Urine Blood 3+ /uL (Negative) H Urine Nitrite Negative (Negative) Urine Bilirubin Negative (Negative) Urine Urobilinogen Normal mg/dL (Negative) Urine Leukocyte Esterase 3+ /uL (Negative) Urine RBC None seen /hpf (0 - 3) Urine WBC None seen /hpf (0 - 3) Urine Squamous Epithelial Cells None seen /hpf (<5) Urine Bacteria None seen /hpf (None Seen) Urine Osmolality 401 mOsm/kg Urine Creatinine 54.32 mg/dL (30.0-125.0) Urine Sodium 60 mmol/L (40-220) Urine Glucose 3+ mg/dL (Normal) H Microbiology Microbiology Date/Time Source Procedure Growth Status 03/24/24 05:45 Voided Urine Urine Culture - Preliminary Resulted 03/23/24 19:11 Blood Blood Culture - Preliminary NO GROWTH AFTER 24 HOURS OF INCUBATION. Resulted Assessment/Plan Assessment/Plan # Acute complicated cystitis # S/P right ureterolithotripsy with bilateral ureteral stents secondary to bilateral kidney stones - U/A is consistent with pyuria without bacteriuria - Ultrasound of the kidney revealed mild bilateral hydronephrosis and Left kidney midpole echogenic structure which may represent a renal stone measuring 6 mm - Ordered urine bacterial culture - IV ceftriaxone 1 g daily - Consulted urology s/p Stent removal # Anemia - Check FOBT # Type 2 diabetes mellitus, HbA1C 8.1% on 03/21/24 - Lantus 30 unit b.i.d and mild sliding scale of insulin # JOSEF on Stage 4 CKD - Strict I/O - Avoid nephrotoxic medication - Consulted Nephrology # History of CAD, s/p CABG - Aspirin 81 mg p.o. daily atorvastatin 80 mg at HS # Hypertensive heart disease - Metoprolol tartrate 25 mg p.o. b.i.d. and lisinopril 5 mg daily - Echo on 12/07 demonstrated EF 55%. # Chronic hypothyroidism - Levothyroxine 175 mcg at q.a.m. # History of mechanical heart valve - Lovenox Subq # PUD prophylaxis - Pepcid 20 mg p.o. daily # DVT prophylaxis - Lovenox Subq Goal of care discussed with the patient for more than 20 minutes full code Plan discussed with: Patient My Orders Orders - MYA BRANHAM MD Procedure Category Date Status Time Stool Occult Blood LAB 03/24/24 Logged 17:26 Insulin Lispro PHA 03/25/24 In Process (Human) (Humalog) 14:00 Basic Metabolic Panel LAB 03/26/24 Verified 04:00 Complete Blood Count LAB 03/26/24 Verified 04:00 Date of Service: Mar 25, 2024 Billing Provider: MYA BRANHAM MD Common Visit Codes: [id number] INP/OBS CARE(HIGH) MYA BRANHAM MD Mar 25, 2024 14:57
[2024-03-25] MEDS: FERROUS SULFATE 325mg EC TAB PO SCH (17:13)
[2024-03-25] MEDS: FERROUS SULFATE 325mg EC TAB PO ONE (17:13)
[2024-03-26] VITALS (8 sets, daily range): BP systolic 110–139; BP diastolic 66–76; PULSE 42–98; RESP 16–20; TEMP 97.7–98.7; O2SAT 86–95
[2024-03-26 07:22] LABS: Basophils # (auto) 0.1 10 ^3/uL (0-0.2); Basophils % (auto) 0.5 % (0.0-2.0); Eosinophils # (auto) 0.1 10 ^3/uL (0-0.8); Hematocrit 27.8 % (41.0-53.0); Hemoglobin 8.9 g/dL (13.5-17.5); Monocytes # (auto) 0.9 10 ^3/uL (0-1.3); Red Blood Cells 3.61 10^6/uL (4.5-5.90)
[2024-03-26 07:28] LABS: Anion Gap 9 (5-15); Carbon Dioxide 21 mmol/L (20-31); Chloride 106 mmol/L (98-107); Lymphocytes # (auto) 1.4 10 ^3/uL (0.4-5.4); Lymphocytes % (auto) 10.7 % (10.0-50.0); Mean Corpuscular Hemoglobin 24.7 pg (28.0-32.0); Mean Corpuscular Volume 77.1 fL (80.0-100.0); Monocytes % (auto) 6.7 % (0.0-12.0); Neutrophils # (auto) 10.5 10 ^3/uL (1.6-8.6); Neutrophils % (auto) 81.1 % (37.0-80.0); Platelet Count (auto) 311 10^3/uL (140-450); Potassium 4.3 mmol/L (3.5-5.1); Red Cell Distribution Width 17.2 % (11.8-14.3); Sodium 136 mmol/L (136-145); White Blood Cell 12.9 10^3/uL (4.4-10.8)
[2024-03-26 07:29] LABS: Calcium 9.6 mg/dL (8.7-10.4)
[2024-03-26 07:34] LABS: BUN/Creatinine Ratio 20.7 (10.0-20.0)
[2024-03-26 07:40] LABS: Blood Urea Nitrogen 50 mg/dL (9-23); Glucose 321 mg/dL (74-106)
--- NOTE | 2024-03-26 12:38 | DVHPN2 ---
Reviewed: Care Plan, H&P, Labs, Medications, Previous Orders, Radiology Changes from previous H/P or p: No Changes Eyes: No Pain, No Vision change, No Conjunctivae inflammation, No Eyelid inflammation, No Other, No Redness ENT: No Ear pain, No Ear discharge, No Nose pain, No Nose discharge, No Nose congestion, No Mouth pain, No Mouth swelling, No Throat pain, No Throat swelling, No Other Cardiovascular: No Chest Pain, No Palpitations, No Orthopnea, No Paroxysmal Noc. Dyspnea, No Edema, No Lt Headedness, No Other Respiratory: No Cough, No Dry, No Shortness of breath, No SOB with excertion, No Wheezing, No Hemoptysis, No Pleuritic Pain, No Sputum, No Other Gastrointestinal: No Nausea, No Vomiting, No Abdominal Pain, No Diarrhea, No Constipation, No Melena, No Hematochezia, No Other Genitourinary: No Dysuria, No Frequency, No Incontinence, No Hematuria, No Retention, No Other Musculoskeletal: No other, No neck pain, No shoulder pain, No arm pain, No back pain, No hand pain, No leg pain, No foot pain Skin: No Rash, No Lesions, No Jaundice, No Bruising, No Other Objective Vitals Vital Signs Date Time Temp Pulse Resp B/P (MAP) Pulse Ox O2 Delivery O2 Flow Rate FiO2 03/26/24 11:46 88 110/71 03/26/24 09:05 98.2 16 95 98.2 03/26/24 08:00 Room Air* 0 21 Intake/Output Intake and Output 03/26/24 07:00 Intake Total 1310 ml Balance 1310 ml Intake Oral 660 ml IV Total 650 ml General Appearance: Alert, Oriented X3, Cooperative, No acute distress Lungs: Clear to auscultation Cardiovascular: Regular rate, Normal S1, Normal S2 Abdomen: Normal bowel sounds, Soft Psych/Mental Status: Mental status NL Medications Current Medications Medications Dose Ordered Sig/Jazz Route Start Time Stop Time Status Last Admin Dose Admin Ceftriaxone Sodium 50 ml @ 100 mls/hr DAILY IV 03/24/24 10:00 03/26/24 11:46 100 MLS/HR Lisinopril 5 mg DAILY PO 03/24/24 10:00 03/26/24 11:45 5 MG Metoprolol Tartrate 25 mg BID PO 03/23/24 22:00 03/26/24 11:46 25 MG Tamsulosin HCl 0.4 mg HS PO 03/24/24 22:00 03/26/24 05:03 0.4 MG Dextrose 50 ml UD PRN IV 03/23/24 21:45 Insulin Glargine 30 units BID@0700,2200 SC 03/23/24 22:00 03/26/24 05:13 30 UNITS Levothyroxine Sodium 175 mcg DAILY@0700 PO 03/24/24 07:00 03/26/24 05:04 175 MCG Atorvastatin Calcium 80 mg HS PO 03/24/24 22:00 03/25/24 21:15 80 MG Diagnostic Test (Pha) 1 strip ACHS 03/24/24 07:00 03/26/24 12:11 1 STRIP Insulin Human Regular ACHS SC 03/24/24 07:00 03/26/24 12:13 8 UNITS Sodium Chloride 1,000 ml @ 100 mls/hr Q10H IV 03/24/24 07:30 03/25/24 06:23 100 MLS/HR Insulin Human Lispro 15 units TID SC 03/25/24 14:00 Hold Ferrous Sulfate 325 mg BIDWM PO 03/25/24 18:00 03/26/24 08:33 325 MG Laboratory Results Laboratory Tests 03/26/24 06:17 Chemistry Test 03/26/24 06:17 Calcium Level 9.6 mg/dL (8.7-10.4) Urinalysis Test 03/23/24 14:49 03/25/24 11:00 Urine WBC Clumps Present /hpf (None Seen) Urine Color Red (Yellow) H Urine Clarity Cloudy (Clear) H Urine pH 5.5 (5.0-9.0) Urine Specific [place] 1.011 (1.001-1.035) Urine Protein 2+ (Negative) H Urine Ketones Negative (Negative) Urine Blood 3+ /uL (Negative) H Urine Nitrite Negative (Negative) Urine Bilirubin Negative (Negative) Urine Urobilinogen Normal mg/dL (Negative) Urine Leukocyte Esterase 3+ /uL (Negative) Urine RBC None seen /hpf (0 - 3) Urine WBC None seen /hpf (0 - 3) Urine Squamous Epithelial Cells None seen /hpf (<5) Urine Bacteria None seen /hpf (None Seen) Urine Osmolality 401 mOsm/kg Urine Creatinine 54.32 mg/dL (30.0-125.0) Urine Sodium 60 mmol/L (40-220) Urine Glucose 3+ mg/dL (Normal) H Microbiology Microbiology Date/Time Source Procedure Growth Status 03/24/24 05:45 Voided Urine Urine Culture - Preliminary Resulted 03/23/24 19:11 Blood Blood Culture - Preliminary NO GROWTH AFTER 48 HOURS OF INCUBATION. Resulted Labs and/or images reviewed: Labs reviewed by me, Image(s) reviewed by me Assessment/Plan Assessment/Plan Covering for Sepsis secondary to urinary tract infection Acute complicated cystitis: Continue Rocephin: Blood cultures negative, urine cultures pending Status post right ureteral lithotripsy with a bilateral ureteral stents secondary to bilateral kidney stone Anemia Type 2 diabetes CKD four History of CAD with CABG Hypertensive heart disease Hypothyroidism History of mechanical heart valve Time spent 55 minutes Continue current care Plan discussed with: Patient Date of Service: Mar 26, 2024 Billing Provider: CLINT BAER MD Common Visit Codes: [id number] INP/OBS CARE(HIGH) Secondary Visit Codes: [id number] CARE PLAN 30 MINUTES CLINT BAER MD Mar 26, 2024 12:38
[2024-03-26] MEDS: guaiFENesin-DM 100/10mg/5ml SYR PO PRN (21:30)
[2024-03-27] VITALS (8 sets, daily range): BP systolic 126–147; BP diastolic 61–79; PULSE 75–97; RESP 18–20; TEMP 97.9–98.5; O2SAT 94–96
[2024-03-27] MEDS: InsuLIN REG 1unit/0.01ml Soln (100units/ml) SC SCH ×2 (06:17→22:30)
[2024-03-27] MEDS: ACCU-CHEK COMFORT CURVE STRIP VI SCH (06:18)
--- NOTE | 2024-03-27 09:19 | DVHPN2 ---
Reviewed: Care Plan, H&P, Labs, Medications, Previous Orders, Radiology Changes from previous H/P or p: No Changes Eyes: No Pain, No Vision change, No Conjunctivae inflammation, No Eyelid inflammation, No Other, No Redness ENT: No Ear pain, No Ear discharge, No Nose pain, No Nose discharge, No Nose congestion, No Mouth pain, No Mouth swelling, No Throat pain, No Throat swelling, No Other Cardiovascular: No Chest Pain, No Palpitations, No Orthopnea, No Paroxysmal Noc. Dyspnea, No Edema, No Lt Headedness, No Other Respiratory: No Cough, No Dry, No Shortness of breath, No SOB with excertion, No Wheezing, No Hemoptysis, No Pleuritic Pain, No Sputum, No Other Gastrointestinal: No Nausea, No Vomiting, No Abdominal Pain, No Diarrhea, No Constipation, No Melena, No Hematochezia, No Other Genitourinary: No Dysuria, No Frequency, No Incontinence, No Hematuria, No Retention, No Other Musculoskeletal: No other, No neck pain, No shoulder pain, No arm pain, No back pain, No hand pain, No leg pain, No foot pain Skin: No Rash, No Lesions, No Jaundice, No Bruising, No Other Objective Vitals Vital Signs Date Time Temp Pulse Resp B/P (MAP) Pulse Ox O2 Delivery O2 Flow Rate FiO2 03/27/24 09:04 84 126/64 03/27/24 08:10 18 94 Room Air* 0 21 03/27/24 05:00 98.5 98.5 Intake/Output Intake and Output 03/27/24 07:00 Intake Total 1000 ml Output Total 500 ml Balance 500 ml Intake Oral 850 ml IV Total 150 ml Output Urine Total 500 ml General Appearance: Alert, Oriented X3, Cooperative, No acute distress Lungs: Clear to auscultation Cardiovascular: Regular rate, Normal S1, Normal S2 Abdomen: Normal bowel sounds, Soft Psych/Mental Status: Mental status NL Medications Current Medications Medications Dose Ordered Sig/Jazz Route Start Time Stop Time Status Last Admin Dose Admin Ceftriaxone Sodium 50 ml @ 100 mls/hr DAILY IV 03/24/24 10:00 03/27/24 09:06 100 MLS/HR Lisinopril 5 mg DAILY PO 03/24/24 10:00 03/27/24 09:04 5 MG Metoprolol Tartrate 25 mg BID PO 03/23/24 22:00 03/27/24 09:04 25 MG Tamsulosin HCl 0.4 mg HS PO 03/24/24 22:00 03/26/24 21:23 0.4 MG Dextrose 50 ml UD PRN IV 03/23/24 21:45 Insulin Glargine 30 units BID@0700,2200 SC 03/23/24 22:00 03/27/24 06:18 30 UNITS Levothyroxine Sodium 175 mcg DAILY@0700 PO 03/24/24 07:00 03/27/24 06:10 175 MCG Atorvastatin Calcium 80 mg HS PO 03/24/24 22:00 03/26/24 21:24 80 MG Sodium Chloride 1,000 ml @ 100 mls/hr Q10H IV 03/24/24 07:30 03/25/24 06:23 100 MLS/HR Insulin Human Lispro 15 units TID SC 03/25/24 14:00 Hold Ferrous Sulfate 325 mg BIDWM PO 03/25/24 18:00 03/27/24 08:49 325 MG Guaifenesin/ Dextromethorphan 10 ml Q4HP PRN PO 03/26/24 18:00 03/26/24 21:30 10 ML Diagnostic Test (Pha) 1 strip ACHS 03/27/24 07:00 03/27/24 06:18 1 STRIP Insulin Human Regular HS SC 03/27/24 22:00 Insulin Human Regular AC SC 03/27/24 07:00 03/27/24 06:17 9 UNITS Laboratory Results Laboratory Tests 03/26/24 06:17 Urinalysis Test 03/23/24 14:49 03/25/24 11:00 Urine WBC Clumps Present /hpf (None Seen) Urine Color Red (Yellow) H Urine Clarity Cloudy (Clear) H Urine pH 5.5 (5.0-9.0) Urine Specific [place] 1.011 (1.001-1.035) Urine Protein 2+ (Negative) H Urine Ketones Negative (Negative) Urine Blood 3+ /uL (Negative) H Urine Nitrite Negative (Negative) Urine Bilirubin Negative (Negative) Urine Urobilinogen Normal mg/dL (Negative) Urine Leukocyte Esterase 3+ /uL (Negative) Urine RBC None seen /hpf (0 - 3) Urine WBC None seen /hpf (0 - 3) Urine Squamous Epithelial Cells None seen /hpf (<5) Urine Bacteria None seen /hpf (None Seen) Urine Osmolality 401 mOsm/kg Urine Creatinine 54.32 mg/dL (30.0-125.0) Urine Sodium 60 mmol/L (40-220) Urine Glucose 3+ mg/dL (Normal) H Microbiology Microbiology Date/Time Source Procedure Growth Status 03/24/24 05:45 Voided Urine Urine Culture - Preliminary Resulted 03/23/24 19:11 Blood Blood Culture - Preliminary NO GROWTH AFTER 72 HOURS OF INCUBATION. Resulted Labs and/or images reviewed: Labs reviewed by me, Image(s) reviewed by me Assessment/Plan Assessment/Plan Covering for Sepsis secondary to urinary tract infection Acute complicated cystitis: Continue Rocephin: Blood cultures negative, urine cultures growing yeast, start Diflucan Status post right ureteral lithotripsy with a bilateral ureteral stents secondary to bilateral kidney stone Anemia Type 2 diabetes CKD four History of CAD with CABG Hypertensive heart disease Hypothyroidism History of mechanical heart valve Time spent 55 minutes Continue current care Plan discussed with: Patient Date of Service: Mar 27, 2024 Billing Provider: CLINT BAER MD Common Visit Codes: [id number] INP/OBS CARE(HIGH) CLINT BAER MD Mar 27, 2024 09:19
[2024-03-27] MEDS: INSULIN LANTUS (GLARGINE) 1 /0.01ml (100units/ml) SC SCH (09:30)
[2024-03-27] MEDS: FLUCONAZOLE 200MG/100ML 100 ML IV SCH (10:25)
[2024-03-28 01:00] VITALS: BP 122/71; PULSE 98; RESP 20; TEMP 98; O2SAT 92
[2024-03-28 05:00] VITALS: BP 119/56; PULSE 95; RESP 20; TEMP 98; O2SAT 93
[2024-03-28 08:00] VITALS: PULSE 84; RESP 18; O2SAT 94
[2024-03-28 08:30] VITALS: BP 123/66; PULSE 90; RESP 18; TEMP 97.7; O2SAT 94
[2024-03-28 12:41] VITALS: BP 106/57; PULSE 79; RESP 18; TEMP 97.7; O2SAT 93
[2024-03-28] MEDS ORDERED: FLUC200T PO (14:21)
[2024-03-28] MEDS ORDERED: FERR-7 PO (14:24)
[2024-03-28] MEDS ORDERED: TAMS-35 PO (14:24)
--- NOTE | 2024-03-28 14:27 | DVHDS2 ---
Discharge Summary Date of Admission Mar 23, 2024 at 21:02 Date of Discharge: Mar 28, 2024 Admitting Diagnosis Urethral stricture disease/meatal stenosis Labs/Diagnostic Data: Laboratory Results Test 03/28/24 11:48 03/26/24 06:17 03/25/24 14:50 03/25/24 11:00 POC Glucose 191 mg/dl (70-106) White Blood Count 12.9 10^3/uL (4.4-10.8) Red Blood Count 3.61 10^6/uL (4.5-5.90) Hemoglobin 8.9 g/dL (13.5-17.5) Hematocrit 27.8 % (41.0-53.0) Mean Corpuscular Volume 77.1 fL (80.0-100.0) Mean Corpuscular Hemoglobin 24.7 pg (28.0-32.0) Mean Corpuscular Hemoglobin Concent 32.0 g/dL (32.0-36.0) Red Cell Distribution Width 17.2 % (11.8-14.3) Platelet Count 311 10^3/uL (140-450) Mean Platelet Volume 6.8 fL (6.9-10.8) Neutrophils (%) (Auto) 81.1 % (37.0-80.0) Lymphocytes (%) (Auto) 10.7 % (10.0-50.0) Monocytes (%) (Auto) 6.7 % (0.0-12.0) Eosinophils (%) (Auto) 1.0 % (0.0-7.0) Basophils (%) (Auto) 0.5 % (0.0-2.0) Neutrophils # (Auto) 10.5 10 ^3/uL (1.6-8.6) Lymphocytes # (Auto) 1.4 10 ^3/uL (0.4-5.4) Monocytes # (Auto) 0.9 10 ^3/uL (0-1.3) Eosinophils # (Auto) 0.1 10 ^3/uL (0-0.8) Basophils # (Auto) 0.1 10 ^3/uL (0-0.2) Nucleated Red Blood Cells 0.0 % Sodium Level 136 mmol/L (136-145) Potassium Level 4.3 mmol/L (3.5-5.1) Chloride Level 106 mmol/L (98-107) Carbon Dioxide Level 21 mmol/L (20-31) Anion Gap 9 (5-15) Blood Urea Nitrogen 50 mg/dL (9-23) Creatinine 2.41 mg/dL (0.700-1.30) Glomerular Filtration Rate Calc 29 mL/min (>90) BUN/Creatinine Ratio 20.7 (10.0-20.0) Serum Glucose 321 mg/dL (74-106) Calcium Level 9.6 mg/dL (8.7-10.4) Stool Occult Blood Negative (Negative) Stool Occult Blood Sample #3 (Negative) Urine Color Red (Yellow) Urine Clarity Cloudy (Clear) Urine pH 5.5 (5.0-9.0) Urine Specific [place] 1.011 (1.001-1.035) Urine Protein 2+ (Negative) Urine Ketones Negative (Negative) Urine Blood 3+ /uL (Negative) Urine Nitrite Negative (Negative) Urine Bilirubin Negative (Negative) Urine Urobilinogen Normal mg/dL (Negative) Urine Leukocyte Esterase 3+ /uL (Negative) Urine RBC None seen /hpf (0 - 3) Urine WBC None seen /hpf (0 - 3) Urine Squamous Epithelial Cells None seen /hpf (<5) Urine Bacteria None seen /hpf (None Seen) Urine Osmolality 401 mOsm/kg Urine Creatinine 54.32 mg/dL (30.0-125.0) Urine Sodium 60 mmol/L (40-220) Urine Glucose 3+ mg/dL (Normal) Test 03/24/24 04:47 03/23/24 19:21 03/23/24 15:19 03/23/24 14:49 Prothrombin Time 13.9 sec (9.3-11.8) Prothrombin Time INR 1.34 (0.9-1.15) Activated Partial Thromboplast Time 33.8 SEC (24.5-34.5) Lactic Acid Level 1.3 mmol/L (0.4-2.0) B-Type Natriuretic Peptide 53.66 pg/mL (0-100) Urine WBC Clumps Present /hpf (None Seen) Other Laboratory Tests 03/26/24 06:17 Brief Hx & Hospital Course: Patient with a history of bilateral ureteral calculi status post stents placement in October of 2023 with subsequent ureteroscopic laser on 12/14/2023. He has indwelling ureteral stents since then. He is admitted for abnormal laboratory data including hyperkalemia. He was placed on potassium citrate for alkalinization of his uric acid stones but will need to be discontinued for now. Patient underwent Cystoscopy with bilateral ureteral stents removal, Urethral dilation, Thornton insertion. Patient was found to have Yeast in his Urine. Will discharge with Diflucan, Thornton in place. See Urology clinic in 1 week. Condition at Discharge: Fair Final Diagnosis/Problems List # Urethral stricture disease/meatal stenosis # Acute complicated cystitis # S/P right ureterolithotripsy with bilateral ureteral stents secondary to bilateral kidney stones # Anemia - FOBT negative - Monitor as outpatient # Type 2 diabetes mellitus, HbA1C 8.1% on 03/21/24 - Lantus 30 unit b.i.d and mild sliding scale of insulin # JOSEF on Stage 4 CKD - Strict I/O - Avoid nephrotoxic medication - Consulted Nephrology # History of CAD, s/p CABG - Aspirin 81 mg p.o. daily atorvastatin 80 mg at HS # Hypertensive heart disease - Metoprolol tartrate 25 mg p.o. b.i.d. and lisinopril 5 mg daily - Echo on 12/07 demonstrated EF 55%. # Chronic hypothyroidism - Levothyroxine 175 mcg at q.a.m. # History of mechanical heart valve - Resume Warfarin # PUD prophylaxis - Pepcid 20 mg p.o. daily Discharge Disposition: Home Discharge Instruct/Medications Diet: Consistent carbohydrate Activity: Light activity Follow Up/Referral: Urology in 1-2 weeks Medications: See [facility] Discharge Statement: "Patient was advised to return to the ER or call 911 if any headaches, dizziness, shortness of breath, chest pain, abdominal pain, bleeding, fevers, or worsening of medical condition. Patient was counseled about treatment plan, medications, possible side effects, patientverbalized understanding. All questions were answered to the best of my ability. This discharge took greater then 30 minutes in planning, reviewing documentation, counseling the patient, and discussing with other team members." ASSESSMENT ASSESSMENT Assessment Urethral stricture disease/meatal stenosis Date of Service: Mar 28, 2024 Billing Provider: MYA BRANHAM MD Common Visit Codes: [id number] DISCH DAY >30min MYA BRANHAM MD Mar 28, 2024 14:27
[2024-03-28 14:30] VITALS: BP 126/68; PULSE 78; TEMP 98.5
--- NOTE | 2024-03-30 13:45 | ECG ---
[facility] Test Date: 2024-03-23 Test Time: 14:28:01 Pat Name: CAROL WADE Department: ER Room: 0208 A Gender: M Pear Picker: NICO : [phone] Requested By: TERESA PELLETIER Order Number: [id number] Reading MD: Daron Berg Measurements Intervals [place] Rate: 87 P: 0 MN: 0 QRS: 23 QRSD: 88 T: 4 QT: 341 QTc: 411 Interpretive Statements Normal sinus rhythm Artifact in lead(s) I,III,aVR,aVL,aVF,V1,V2 Electronically Signed On 04-03-2024 14:03:32 PST by Daron Berg Please click the below link to view image of tracing.
== END 2024-03-28 15:45 | disposition home or self-care (01) | DRG 871 ==
LOC: ER 13:46 → OVERFLOW 21:02 → CENTRAL 03-24 12:14
PROVIDERS: ADMIT Internal Medicine; ATTEND Internal Medicine
PROC: 0TP98DZ Removal of Intraluminal Device from Ureter, Via Natural or Artificial Opening Endoscopic (ICD-10-PCS; 2024-03-24)
PROC: 0T7D8ZZ Dilation of Urethra, Via Natural or Artificial Opening Endoscopic (ICD-10-PCS; 2024-03-24)
PROC: 0TP98DZ Removal of Intraluminal Device from Ureter, Via Natural or Artificial Opening Endoscopic (ICD-10-PCS; principal; 2024-03-24 10:54)
DX: A41.9 Sepsis, unspecified organism (principal); N17.0 Acute kidney failure with tubular necrosis; N13.6 Pyonephrosis; N20.1 Calculus of ureter; N30.01 Acute cystitis with hematuria; I13.0 Hypertensive heart and chronic kidney disease with heart failure and stage 1 through stage 4 chronic kidney disease, or unspecified chronic kidney disease; N18.4 Chronic kidney disease, stage 4 (severe); E11.22 Type 2 diabetes mellitus with diabetic chronic kidney disease; I50.9 Heart failure, unspecified; E03.9 Hypothyroidism, unspecified; E87.5 Hyperkalemia; D64.9 Anemia, unspecified; N35.911 Unspecified urethral stricture, male, meatal; N35.819 Other urethral stricture, male, unspecified site; I25.10 Atherosclerotic heart disease of native coronary artery without angina pectoris; Z79.899 Other long term (current) drug therapy; Z86.718 Personal history of other venous thrombosis and embolism; Z79.82 Long term (current) use of aspirin; Z79.01 Long term (current) use of anticoagulants; Z79.4 Long term (current) use of insulin; Z95.1 Presence of aortocoronary bypass graft; Z95.2 Presence of prosthetic heart valve; E11.65 Type 2 diabetes mellitus with hyperglycemia
CPT/HCPCS: 36415; 71045; 74018; 74176; 76000; 76775; 80048; 80053; 80061; 81001; 82270; 82570; 82962; 83036; 83605; 83880; 83935; 84300; 84443; 85025; 85610; 85730; 87040; 87086; 87088; 93005; 94640; 97110; 97116; 97163; G0378; J1100; J1450; J1815; J1885; J2405; J2704

== ENCOUNTER → 2024-05-10 | Outpatient (CLI) | payer OTHER ==
[~2024-05-10] MED LIST changes: +FERR-7 PO; +FLUC200T PO; +TAMS-35 PO; -WARF4TAB70 PO
[2024-05-10 08:46] LABS: Basophils # (auto) 0.1 10 ^3/uL (0-0.2); Eosinophils # (auto) 0.3 10 ^3/uL (0-0.8); Monocytes # (auto) 0.5 10 ^3/uL (0-1.3)
[2024-05-10 08:47] LABS: Basophils % (auto) 0.8 % (0.0-2.0); Eosinophils % (auto) 3.9 % (0.0-7.0); Hematocrit 33.9 % (41.0-53.0); Hemoglobin 10.9 g/dL (13.5-17.5); Lymphocytes # (auto) 1.7 10 ^3/uL (0.4-5.4); Lymphocytes % (auto) 20.7 % (10.0-50.0); Mean Corpuscular Volume 78.1 fL (80.0-100.0); Monocytes % (auto) 5.6 % (0.0-12.0); Neutrophils # (auto) 5.5 10 ^3/uL (1.6-8.6); Platelet Count (auto) 225 10^3/uL (140-450); Red Blood Cells 4.34 10^6/uL (4.5-5.90)
[2024-05-10 09:01] LABS: Alanine Aminotransferase 19 U/L (7-40); Alkaline Phosphatase 70 U/L (46-116); Anion Gap 11 (5-15); BUN/Creatinine Ratio 9.4 (10.0-20.0); Blood Urea Nitrogen 17 mg/dL (9-23); Calcium 9.7 mg/dL (8.7-10.4); Carbon Dioxide 23 mmol/L (20-31); Chloride 102 mmol/L (98-107); Potassium 4.8 mmol/L (3.5-5.1)
[2024-05-10 09:02] LABS: Albumin 4.2 g/dL (3.2-4.8); Bilirubin, Total 0.6 mg/dL (0.2-1.0); Total Protein 6.7 g/dL (5.7-8.2)
[2024-05-10 10:02] LABS: Aspartate Aminotransferase 12 U/L (13-40); Sodium 136 mmol/L (136-145)
[2024-05-10 10:04] LABS: Glucose 441 mg/dL (74-106)
== END | disposition home or self-care (01) ==
LOC: LAB 07:43
PROVIDERS: ATTEND Licensed Practical Nurse
DX: I25.10 Atherosclerotic heart disease of native coronary artery without angina pectoris (principal); I50.9 Heart failure, unspecified; D64.9 Anemia, unspecified; Z79.01 Long term (current) use of anticoagulants
CPT/HCPCS: 36415; 80053; 82728; 83540; 83550; 85025

== ENCOUNTER → 2024-06-06 | Outpatient (CLI) | payer OTHER | END | disposition home or self-care (01) | LOC: LAB 09:21 | PROVIDERS: ATTEND Internal Medicine | DX: I49.9 Cardiac arrhythmia, unspecified (principal) | CPT/HCPCS: 36415; 80162 ==

== ENCOUNTER 2024-09-02 07:55 | Outpatient (CLI) | payer OTHER ==
[2024-09-02 08:16] LABS: Basophils # (auto) 0.1 10 ^3/uL (0-0.2); Basophils % (auto) 0.9 % (0.0-2.0); Eosinophils # (auto) 0.2 10 ^3/uL (0-0.8); Eosinophils % (auto) 2.2 % (0.0-7.0); Hematocrit 43.7 % (41.0-53.0); Hemoglobin 14.4 g/dL (13.5-17.5); Lymphocytes # (auto) 1.9 10 ^3/uL (0.4-5.4); Lymphocytes % (auto) 22.4 % (10.0-50.0); Mean Corpuscular Hemoglobin 26.4 pg (28.0-32.0); Mean Corpuscular Hgb Conc. 33.1 g/dL (32.0-36.0); Mean Corpuscular Volume 79.9 fL (80.0-100.0); Monocytes # (auto) 0.6 10 ^3/uL (0-1.3); Monocytes % (auto) 6.6 % (0.0-12.0); Neutrophils # (auto) 5.7 10 ^3/uL (1.6-8.6); Neutrophils % (auto) 67.9 % (37.0-80.0); Platelet Count (auto) 154 10^3/uL (140-450); Red Blood Cells 5.46 10^6/uL (4.5-5.90); Red Cell Distribution Width 15.1 % (11.8-14.3); White Blood Cell 8.5 10^3/uL (4.4-10.8)
[2024-09-02 08:43] LABS: Alanine Aminotransferase 40 U/L (7-40); Albumin 4.8 g/dL (3.2-4.8); Alkaline Phosphatase 74 U/L (46-116); Anion Gap 12 (5-15); Aspartate Aminotransferase 26 U/L (<34); BUN/Creatinine Ratio 16.3 (10.0-20.0); Calcium 10.4 mg/dL (8.7-10.4); Carbon Dioxide 20 mmol/L (20-31); Cholesterol 173 mg/dL (< 200); Potassium 4.7 mmol/L (3.5-5.1); Sodium 141 mmol/L (136-145); Total Protein 7.7 g/dL (5.7-8.2)
[2024-09-02 08:44] LABS: % Iron Saturation 20.7 % (20-55)
[2024-09-02 08:48] LABS: Bilirubin, Total 1.4 mg/dL (0.2-1.0); Blood Urea Nitrogen 31 mg/dL (9-23); Chloride 109 mmol/L (98-107); Glucose 123 mg/dL (74-106); HDL Cholesterol 36 mg/dL (40-59); LDL Cholesterol 106 mg/dL (< 100); Triglycerides 220 mg/dL (< 150)
[2024-09-02 09:02] LABS: Ferritin 137.8 ng/mL (22-322)
[2024-09-02 10:17] LABS: Hepatitis B Core Total AB Negative (Negative)
[2024-09-02 11:22] LABS: Hepatitis A Total Antibody Positive (Negative); Hepatitis B Surface Antibody Negative (Negative); Hepatitis B Surface Antigen Negative (Negative); Hepatitis C Antibody Negative (Negative)
== END 2024-09-02 17:00 | disposition home or self-care (01) ==
LOC: LAB 07:55
PROVIDERS: ATTEND Licensed Practical Nurse
DX: I13.0 Hypertensive heart and chronic kidney disease with heart failure and stage 1 through stage 4 chronic kidney disease, or unspecified chronic kidney disease (principal); N18.9 Chronic kidney disease, unspecified; I50.9 Heart failure, unspecified; E11.22 Type 2 diabetes mellitus with diabetic chronic kidney disease; E03.9 Hypothyroidism, unspecified; E55.9 Vitamin D deficiency, unspecified; I48.0 Paroxysmal atrial fibrillation; D68.69 Other thrombophilia
CPT/HCPCS: 36415; 80053; 80061; 82043; 82306; 82607; 82728; 83540; 83550; 84443; 85025; 86704; 86706; 86708; 86803; 87340

== ENCOUNTER 2024-11-28 13:20 | Outpatient (CLI) | payer OTHER ==
[2024-11-28 13:55] LABS: Hematocrit 44.5 % (41.0-53.0); Hemoglobin 15.1 g/dL (13.5-17.5); Mean Corpuscular Hemoglobin 28.4 pg (28.0-32.0); Mean Corpuscular Volume 83.6 fL (80.0-100.0); Nucleated Red Blood Cells % 0.0 %
[2024-11-28 14:18] LABS: Albumin 4.5 g/dL (3.2-4.8); Alkaline Phosphatase 92 U/L (46-116); Anion Gap 14 (5-15); BUN/Creatinine Ratio 14.9 (10.0-20.0); Calcium 9.7 mg/dL (8.7-10.4); Carbon Dioxide 21 mmol/L (20-31); Chloride 103 mmol/L (98-107); Sodium 138 mmol/L (136-145); Total Protein 7.6 g/dL (5.7-8.2); Triglycerides 148 mg/dL (< 150)
[2024-11-28 14:19] LABS: Alanine Aminotransferase 48 U/L (7-40); Bilirubin, Total 0.9 mg/dL (0.2-1.0); Blood Urea Nitrogen 34 mg/dL (9-23); Cholesterol 181 mg/dL (< 200); Glucose 252 mg/dL (74-106); HDL Cholesterol 40 mg/dL (40-59); Potassium 5.4 mmol/L (3.5-5.1)
== END 2024-11-28 17:00 | disposition home or self-care (01) ==
LOC: LAB 13:20
PROVIDERS: ATTEND Licensed Practical Nurse
DX: I12.9 Hypertensive chronic kidney disease with stage 1 through stage 4 chronic kidney disease, or unspecified chronic kidney disease (principal); E11.22 Type 2 diabetes mellitus with diabetic chronic kidney disease; N18.4 Chronic kidney disease, stage 4 (severe); E55.9 Vitamin D deficiency, unspecified; D68.69 Other thrombophilia
CPT/HCPCS: 36415; 80053; 80061; 82043; 82306; 83036; 85025

== ENCOUNTER 2025-01-10 11:10 | Outpatient (CLI) | payer OTHER ==
[2025-01-10 11:49] LABS: INR 2.96 (0.9-1.15); Prothrombin Time 28.2 sec (9.3-11.8)
== END 2025-01-10 17:00 | disposition home or self-care (01) ==
LOC: LAB 11:10
PROVIDERS: ATTEND Physician Assistant
DX: D68.69 Other thrombophilia (principal); I26.99 Other pulmonary embolism without acute cor pulmonale
CPT/HCPCS: 36415; 85610